=== PATIENT | female | born 1950 | race Caucasian/White ===

== ENCOUNTER 2019-07-09 13:17 | Outpatient (CLI) | payer OTHER, SELFPAY | END 2019-07-09 13:18 | disposition home or self-care (01) | LOC: RT 13:19 | PROVIDERS: Family Provider Family Medicine; PCP Family Medicine; Visit Provider Internal Medicine Critical Care Medicine | DX: Z76.89 Persons encountering health services in other specified circumstances (principal) ==

== ENCOUNTER 2019-07-13 12:00 | Outpatient (CLI) | payer MEDICARE, SELFPAY | END 2019-07-13 12:01 | disposition home or self-care (01) | LOC: SLEEP 07-19 09:51 | PROVIDERS: Family Provider Family Medicine; PCP Family Medicine; Visit Provider Internal Medicine Critical Care Medicine | DX: J44.9 Chronic obstructive pulmonary disease, unspecified (principal) | CPT/HCPCS: 94762 ==

== ENCOUNTER 2019-08-05 09:49 | Outpatient (CLI) | payer MEDICARE, SELFPAY ==
--- NOTE | 2019-08-05 09:58 | XR_ITS ---
WS: [id number] Chest 2 views, 08/05/2019 Clinical Data: Left Side Pain Comparison: Portable chest, 03/15/2019. Findings: No nodules, masses or effusions are seen. The heart is normal. The pulmonary vascularity is not increased. There is minimal patchy opacity in the lingula seen best on the lateral film. This co uld represent mild pneumonia. There is also mild patchy opacity in the right upper lobe, again minima l pneumonia could be present. The diaphragms are flattened. The aortic arch and descending aorta show minimal tortuosity and calcification. XR/XR chest 2V* [id number] Impression: 1. Mild patchy right upper lobe opacity along with opacity in the lingula and t hese entities could represent mild pneumonia. 2. Hyperinflation and atherosclerosis.
== END 2019-08-05 09:50 | disposition home or self-care (01) ==
LOC: RAD 09:55
PROVIDERS: Family Provider Family Medicine; PCP Family Medicine; Visit Provider Internal Medicine Critical Care Medicine
DX: J44.9 Chronic obstructive pulmonary disease, unspecified (principal); I70.0 Atherosclerosis of aorta
CPT/HCPCS: 71046

== ENCOUNTER 2019-08-08 12:19 | Inpatient (IN) | payer MEDICARE, SELFPAY ==
[2019-08-08] VITALS (10 sets, daily range): BP systolic 116–128; BP diastolic 69–84; PULSE 78–95; RESP 18–24; TEMP 36.4–36.9; O2SAT 82–98; BMI 17.2
--- NOTE | 2019-08-08 12:29 | ED_ITS ---
Entered by Mónica Carballo, acting as scribe for Susie Lerner DO HPI - SOB/Dyspnea General: Chief Complaint: Shortness of Breath/Dyspnea Stated Complaint: low o2 Time Seen by Provider: 08/08/19 12:24 Source: patient Mode of arrival: ambulatory Limitations: no limitations History of Present Illness: HPI Narrative: 69 yo f came to the er pov for low O2. Onset was today. Pt states that she thinks that her grandson had the flu and she took care of him. Pt sais that she felt a head cold coming and some upper right and left abd pain. Pt also said that she has been coughing up some green and yellow phlegm. sent pt for a chest xray and he called back to tell her that she has pneumonia. Pt said that she uses o2 at home and that the sob gets worse with exertion. Pt also has had a fever on and off. MD elicited complaint: shortness of breath Pertinent past history: COPD Onset (ago): day(s) (this morning) Timing: intermittent Severity: mild Exacerbating factors: lying flat, exertion, movement and coughing Relieving factors: oxygen and rest Known history of: COPD Associated symptoms: Reports cough and fever(s); Deny abdominal pain, chest pain, nausea or vomiting Treatment prior to arrival: none Related Data: Home oxygen amount: 2 liters Review of Systems General: Reports: other (negative unless marked) Const: Reports: fever ENMT: Denies: throat pain Card: Denies: chest pain or swelling of feet/ankles Resp: Reports: productive cough (green and yellow phlegm) GI: Denies: abdominal pain, nausea, vomiting, diarrhea, constipation or blood in stool : Denies: difficulty urinating Musc: Denies: back pain or extremity swelling Skin/Breast: Denies: rash Neuro: Denies: headache, numbness in extremities or weakness in extremities PFSH ED PFSH: Medical History COPD (chronic obstructive pulmonary disease) Degenerative arthritis of hip Hip pain, bilateral Joint pain Lumbar spine pain Osteoarthritis Rhinitis TMJ (dislocation of temporomandibular joint) Surgical History History of appendectomy History of hysterectomy History of mandibular surgery History of tonsillectomy and adenoidectomy Family History Mother Myocardial infarction Hypertension Social History Smoking and tobacco status: former smoker Quit status (tobacco): has quit using tobacco Year quit tobacco: 2011 - 2PPD x 40 Years Alcohol intake: never Current occupational status: employed History of recent travel: No Current gender identity: Female Physical Exam Const: COMMON NORMALS: oriented x3 GENERAL APPEARANCE: cooperative Neck/C-Spine: COMMON NORMALS: full ROM Chest: COMMONS NORMALS: inspection of chest normal Resp: EFFORT & INSPECTION: Yes respiratory distress AUSCULTATION: rales on the right throughout, on the left throughout and bilateral Cardio: COMMON NORMALS: regular rate and regular rhythm RATE: regular rate RHYTHM: regular rhythm GI: COMMON NORMALS: soft to palpation INSPECTION: Yes normal to inspection AUSCULTATION: Yes normoactive bowel sounds PALPATION: Yes soft : COMMON NORMALS: Yes no CVA tenderness BLADDER/KIDNEY EXAM: Yes no CVA tenderness Back/Pelvis: COMMON NORMALS: no CVA tenderness Extremity: COMMON NORMALS: normal to inspection Neuro: COMMON NORMALS: oriented x3 Skin: COMMON NORMALS: no rashes or lesions noted GENERAL SKIN EXAM: no rashes or lesions noted Course Vital Signs: Vital signs: Vital Signs Temperature 98.3 F 08/11/19 16:44 Pulse Rate 94 08/11/19 16:44 Respiratory Rate 20 H 08/11/19 16:44 Blood Pressure 134/89 08/11/19 16:44 Pulse Oximetry 94 08/11/19 16:44 MDM - SOB/Dyspnea MDM Narrative: Medical decision making narrative: pt has left lower lobe pneumonia that has been partially treated, she has been on avelox and another abx and is still in resp distress, I will admit her for iv abx frequent nebs, iv steroids. Dr Woodruff states he will admit Lab Data: Attestation: I reviewed the patient's lab results. Labs: Lab Results 08/08/19 08/08/19 08/08/19 Range/Units 12:53 12:53 12:53 WBC 9.4 (4.0-10.0) 10^3/ uL RBC 4.37 (4.1-5.3) 10^6/u L Hgb 13.2 (11.5-15.3) g/dL Hct 41.5 (37.0-47.0) % MCV 95.0 (81-99) fL MCH 30.2 (28.0-34.0) pg MCHC 31.8 (30.0-36.0) g/dL RDW 13.4 (12.1-15.1) % Plt Count 286 (130-400) 10^3/c mm MPV 9.6 (7.4-10.4) fL Neut % (Auto) 79.5 % Lymph % (Auto) 11.2 % Canyon % (Auto) 6.1 % Eos % (Auto) 1.8 % Baso % (Auto) 0.5 % Neut # (Auto) 7.5 (1.8-7.7) 10^3/u L Lymph # (Auto) 1.1 (0.8-4.8) 10^3/u L Canyon # (Auto) 0.6 (0.2-0.9) 10^3/u L Eos # (Auto) 0.2 (0.0-0.8) 10^3/u L Baso # (Auto) 0.1 (0.0-0.1) 10^3/u L Nucleated RBC % (a uto) 0 % Nucleated RBCs # 0.0 /100WBC Specimen Type Sample Site ABG pH (7.35-7.45) ABG pCO2 (35-45) mmHg ABG pO2 (80.0-100.0) mmH g ABG HCO3 (22-26) mmol/L ABG O2 Saturation ABG Base Excess (-2.0-2.0) mmol/ L Jose Test A-a O2 Gradient (5-10) mmHg Hematocrit (37-47) % Hgb O2 Saturation (95-100) % Carboxyhemoglobin (0.4-20.1) %THgb Methemoglobin (0.4-1.5) % Total Hemoglobin (12-16) g/dL Ionized Calcium (1.1-1.4) mmol/L O2 Delivery Device O2 Liters/Min % FiO2 % Hypnotherapist ID Sodium 143 (136-145) mmol/L Potassium 3.6 (3.5-5.1) mmol/L Chloride 104 (98-107) mmol/L Carbon Dioxide 28 (22-29) mmol/L Anion Gap 14.6 (5-19) BUN 15 (8-23) mg/dL Creatinine 0.6 (0.5-0.9) mg/dL GFR Calculation 99.7 (90-130) mL/min Glucose 116 H (65-115) mg/dL Calculated Osmolal ity 293 (285-295) mOsm/k g Calcium 9.4 (8.5-10.5) mg/dL Total Bilirubin 0.3 (0.15-1.2) mg/dL AST 14 (0-32) U/L ALT 12 (0-33) U/L Alkaline Phosphata se 137 H (35-105) IU/L NT-Pro-B Natriuret Pep 691 H (0-125) pg/mL Total Protein 7.6 (6.6-8.7) g/dL Albumin 3.5 (3.5-5.2) g/dL Globulin 4.1 (1.3-4.6) g/dL Procalcitonin 0.25 (0-0.5) ng/mL TSH 2.28 (0.27-4.20) uIU/ mL Influenza Type A A g (Negative) POC Influenza B Ag (Negative) 08/08/19 08/08/19 Range/Units 13:05 13:07 WBC (4.0-10.0) 10^3/ uL RBC (4.1-5.3) 10^6/u L Hgb (11.5-15.3) g/dL Hct (37.0-47.0) % MCV (81-99) fL MCH (28.0-34.0) pg MCHC (30.0-36.0) g/dL RDW (12.1-15.1) % Plt Count (130-400) 10^3/c mm MPV (7.4-10.4) fL Neut % (Auto) % Lymph % (Auto) % Canyon % (Auto) % Eos % (Auto) % Baso % (Auto) % Neut # (Auto) (1.8-7.7) 10^3/u L Lymph # (Auto) (0.8-4.8) 10^3/u L Canyon # (Auto) (0.2-0.9) 10^3/u L Eos # (Auto) (0.0-0.8) 10^3/u L Baso # (Auto) (0.0-0.1) 10^3/u L Nucleated RBC % (a uto) % Nucleated RBCs # /100WBC Specimen Type Arterial Sample Site Brachial, right ABG pH 7.35 (7.35-7.45) ABG pCO2 43.9 (35-45) mmHg ABG pO2 74.0 L (80.0-100.0) mmH g ABG HCO3 23.9 (22-26) mmol/L ABG O2 Saturation 96.1 ABG Base Excess -1.8 (-2.0-2.0) mmol/ L Jose Test N/a A-a O2 Gradient 72.9 H (5-10) mmHg Hematocrit 36.0 L (37-47) % Hgb O2 Saturation 92.2 L (95-100) % Carboxyhemoglobin 3.1 (0.4-20.1) %THgb Methemoglobin 0.9 (0.4-1.5) % Total Hemoglobin 11.8 L (12-16) g/dL Ionized Calcium 1.2 (1.1-1.4) mmol/L O2 Delivery Device Nc O2 Liters/Min 2.0 % FiO2 28.0 % Hypnotherapist ID gd Sodium 142.0 (136-145) mmol/L Potassium 3.3 L (3.5-5.1) mmol/L Chloride (98-107) mmol/L Carbon Dioxide (22-29) mmol/L Anion Gap (5-19) BUN (8-23) mg/dL Creatinine (0.5-0.9) mg/dL GFR Calculation (90-130) mL/min Glucose 115.0 (65-115) mg/dL Calculated Osmolal ity (285-295) mOsm/k g Calcium (8.5-10.5) mg/dL Total Bilirubin (0.15-1.2) mg/dL AST (0-32) U/L ALT (0-33) U/L Alkaline Phosphata se (35-105) IU/L NT-Pro-B Natriuret Pep (0-125) pg/mL Total Protein (6.6-8.7) g/dL Albumin (3.5-5.2) g/dL Globulin (1.3-4.6) g/dL Procalcitonin (0-0.5) ng/mL TSH (0.27-4.20) uIU/ mL Influenza Type A A g Negative (Negative) POC Influenza B Ag Negative (Negative) Imaging Data^: CXR: Radiologist's impression: [place] [address] XRay Report Signed Patient: Agnieszka Carolina #: [id number] : 1950cct#:[id number] Age/Sex: 69 / FADM Date: 08/08/19 Loc: [facility]/Bed: Attending Dr: Ordering Provider/Ordering MD: Susie Lerner DO Date of Service: 08/08/19 Procedure(s): XR chest 1V portable [id number] Accession Number(s): [id number] Report Number: [id number] PROCEDURE INFORMATION: Exam: XR Chest, 1 View Exam date and time: 08/08/2019 12:42 PM Age: 69 years old Clinical indication: Shortness of breath; Additional info: Pneumonia TECHNIQUE: Imaging protocol: XR of the chest Views: 1 view. COMPARISON: CR XR chest 2V* [id number] 08/05/2019 10:01 AM FINDINGS: Lungs: Left lower lobe interstitial congestion is seen. No consolidation. Pleural space: Unremarkable. No pleural effusion. No pneumothorax. Heart/Mediastinum: Unremarkable. No cardiomegaly. Bones/joints: Unremarkable. XR/XR chest 1V portable [id number] IMPRESSION: Left lower lobe interstitial congestion Otherwise No acute findings. Dictated By:Darrion Stanley Signed By:Nuha Stanley Date/Time:08/08/19 1302 DD/ 1301 CT Chest: Radiologist's impression: [address] [address] [address] Scan Report Signed Patient: Agnieszka Carolina #: [id number] : 1950cct#:[id number] Age/Sex: 69 / FADM Date: 08/08/19 Loc: [facility]/Bed: 253-[address]: Emerson Woodruff MD Ordering Provider/Ordering MD: Susie Lerner DO Date of Service: 08/08/19 Procedure(s): CT chest wo con [id number] Accession Number(s): [id number] Report Number: [id number] PROCEDURE INFORMATION: Exam: CT Chest Without Contrast Exam date and time: 08/08/2019 1:10 PM Age: 69 years old Clinical indication: Abnormal findings; Abnormal radiologic exam of lung or chest; Additional info: Abnl cxr TECHNIQUE: Imaging protocol: Computed tomography of the chest without contrast. Total DLP: 321.13 mGy-cm Radiation optimization: All CT scans at this facility use at least one of these dose optimization techniques: automated exposure control; mA and/or kV adjustment per patient size (includes targeted exams where dose is matched to clinical indication); or iterative reconstruction. COMPARISON: CR (CHEST, ) 08/08/2019 12:45 PM FINDINGS: Lungs: There is diffuse emphysematous change. There are scattered ground-glass and tree-in-bud opacities bilaterally, most pronounced within the right upper lobe, left lower lobe and lingula. There is streaky consolidation of the lingula with a few small air bronchograms. There is an ovoid 1.8 x 0.6 cm opacity along the posterior right lower lobe with convex margins and central hypo attenuation (image 33, series 3). Pleural space: No pneumothorax. No pleural effusion. Heart: Coronary atherosclerotic calcifications are noted. The heart is not enlarged. There is no significant pericardial effusion. Pulmonary arteries: The main pulmonary artery measures up to 3.1 cm on this nongated, noncontrast enhanced study. Aorta: Scattered aortic atherosclerotic calcifications are noted. Lymph nodes: Multiple mildly prominent mediastinal and perihilar lymph nodes are noted and may be reactive. Bones/joints: There is diffuse demineralization with multilevel degenerative changes of the spine. There are no acute osseous findings. Soft tissues: Unremarkable. CT/CT chest wo con [id number] IMPRESSION: 1. Emphysema with scattered ground-glass and tree-in-bud opacities bilaterally. Constellation of findings most commonly reflect nonspecific inflammatory or infectious change. There is streaky consolidation within the lingula, which may reflect an early consolidative process. Follow-up evaluation in 4-6 weeks is suggested to assess for resolution. 2. Ovoid opacity along the posterior right lower lobe as detailed, which may reflect consolidation, atelectasis or infarct. Attention on follow-up suggested. 3. Multiple mildly prominent mediastinal and perihilar lymph nodes, which are likely reactive. Attention on follow-up suggested. 4. Coronary atherosclerotic disease and findings which can be associated with pulmonary arterial hypertension. Radiation Dose CTDIVOL = (mGy): DLP = 321.13 (mGy-cm) Dictated By:Adalberto Garcia MD Signed By:Adalberto Garcia MDSigned Date/Time:08/08/191412 DD/ 141 Discharge Plan Discharge Patient Disposition: Admitted As Inpatient Admit Provider: Emerson Woodruff Clinical Impression: Failure of outpatient treatment Community acquired pneumonia Qualifiers: Laterality: left Lung location: lower lobe of lung Qualified Code(s): J18.9 - Pneumonia, unspecified organism Respiratory failure with hypoxia Qualifiers: Chronicity: acute on chronic Qualified Code(s): J96.21 - Acute and chronic respiratory failure with hypoxia Condition: Stable Discharge Orders: Discharge Order (Routine); Ordered 08/11/19 Ordered By: Emerson Woodruff Referrals: Mague Carrero MD [Primary Care Provider] - 08/19/19 3:30 pm (APPOINTMENT WITH DAPHNE MYRICK ) Discharge Diet: Regular Discharge Activity: Resume usual activity Patient Instructions: Ibuprofen (By mouth), Amoxicillin/Clavulanate Potassium (By mouth), Fluticasone (Into the nose) Discharge Date/Time: 08/08/19 14:36 Coding Level of Care Code ED Senior Manufacturing Technician for Chg Fwd Exam Comprehensive The documentation recorded by the Haris george Stephanie Lyn, accurately reflects the service I personally performed and the decisions made by Eduarda woods Sonia M, Aug 08, 2019 12:19
--- NOTE | 2019-08-08 12:40 | XRR_ITS ---
PROCEDURE INFORMATION: Exam: XR Chest, 1 View Exam date and time: 08/08/2019 12:42 PM Age: 69 years old Clinical indication: Shortness of breath; Additional info: Pneumonia TECHNIQUE: Imaging protocol: XR of the chest Views: 1 view. COMPARISON: CR XR chest 2V* [id number] 08/05/2019 10:01 AM FINDINGS: Lungs: Left lower lobe interstitial congestion is seen. No consolidation. Pleural space: Unremarkable. No pleural effusion. No pneumothorax. Heart/Mediastinum: Unremarkable. No cardiomegaly. Bones/joints: Unremarkable. XR/XR chest 1V portable [id number] IMPRESSION: Left lower lobe interstitial congestion Otherwise No acute findings.
[2019-08-08] MEDS: sodium chloride 0.9% 500 ML 999 ML IV (12:55)
[2019-08-08 13:00] LABS: Basophils # 0.1 10^3/uL (0.0-0.1); Basophils % 0.5 %; Eosinophils # 0.2 10^3/uL (0.0-0.8); Eosinophils % 1.8 %; Hematocrit 41.5 % (37.0-47.0); Hemoglobin 13.2 g/dL (11.5-15.3); Lymphocytes # 1.1 10^3/uL (0.8-4.8); Lymphocytes % 11.2 %; Mean Corpuscular HGB Conc 31.8 g/dL (30.0-36.0); Mean Corpuscular Hemoglobin 30.2 pg (28.0-34.0); Mean Platelet Volume 9.6 fL (7.4-10.4); Monocytes # 0.6 10^3/uL (0.2-0.9); Monocytes % 6.1 %; Neutrophils # 7.5 10^3/uL (1.8-7.7); Neutrophils % 79.5 %; Nucleated Red Blood Cells % 0 %; Platelet Count 286 10^3/cmm (130-400); Red Blood Count 4.37 10^6/uL (4.1-5.3); Red Cell Distribution Width 13.4 % (12.1-15.1); White Blood Count 9.4 10^3/uL (4.0-10.0)
--- NOTE | 2019-08-08 13:09 | CTR_ITS ---
PROCEDURE INFORMATION: Exam: CT Chest Without Contrast Exam date and time: 08/08/2019 1:10 PM Age: 69 years old Clinical indication: Abnormal findings; Abnormal radiologic exam of lung or chest; Additional info: Abnl cxr TECHNIQUE: Imaging protocol: Computed tomography of the chest without contrast. Total DLP: 321.13 mGy-cm Radiation optimization: All CT scans at this facility use at least one of these dose optimization techniques: automated exposure control; mA and/or kV adjustment per patient size (includes targeted exams where dose is matched to clinical indication); or iterative reconstruction. COMPARISON: CR (CHEST, ) 08/08/2019 12:45 PM FINDINGS: Lungs: There is diffuse emphysematous change. There are scattered ground-glass and tree-in-bud opacities bilaterally, most pronounced within the right upper lobe, left lower lobe and lingula. There is streaky consolidation of the lingula with a few small air bronchograms. There is an ovoid 1.8 x 0.6 cm opacity along the posterior right lower lobe with convex margins and central hypo attenuation (image 33, series 3). Pleural space: No pneumothorax. No pleural effusion. Heart: Coronary atherosclerotic calcifications are noted. The heart is not enlarged. There is no significant pericardial effusion. Pulmonary arteries: The main pulmonary artery measures up to 3.1 cm on this nongated, noncontrast enhanced study. Aorta: Scattered aortic atherosclerotic calcifications are noted. Lymph nodes: Multiple mildly prominent mediastinal and perihilar lymph nodes are noted and may be reactive. Bones/joints: There is diffuse demineralization with multilevel degenerative changes of the spine. There are no acute osseous findings. Soft tissues: Unremarkable. CT/CT chest wo con [id number] IMPRESSION: 1. Emphysema with scattered ground-glass and tree-in-bud opacities bilaterally. Constellation of findings most commonly reflect nonspecific inflammatory or infectious change. There is streaky consolidation within the lingula, which may reflect an early consolidative process. Follow-up evaluation in 4-6 weeks is suggested to assess for resolution. 2. Ovoid opacity along the posterior right lower lobe as detailed, which may reflect consolidation, atelectasis or infarct. Attention on follow-up suggested. 3. Multiple mildly prominent mediastinal and perihilar lymph nodes, which are likely reactive. Attention on follow-up suggested. 4. Coronary atherosclerotic disease and findings which can be associated with pulmonary arterial hypertension. Radiation Dose CTDIVOL = (mGy): DLP = 321.13 (mGy-cm)
[2019-08-08] MEDS: ipratropium-albuterol 3 mL Neb INHALATION ×3 (13:15→20:59)
[2019-08-08 13:19] LABS: ABG PCO2 43.9 mmHg (35-45); ABG PH Result 7.35 (7.35-7.45); Alveolar-Arterial Oxygen Gradi 72.9 mmHg (5-10); Base Excess ABG -1.8 mmol/L (-2.0-2.0); Blood Gas Sample Site Brachial, right; Blood Gas Sample Type Arterial; Carboxyhemoglobin 3.1 %THgb (0.4-20.1); HCO3 ABG 23.9 mmol/L (22-26); HGB O2 Sat 92.2 % (95-100); Ionized Calcium Level - ABG 1.2 mmol/L (1.1-1.4); Methemoglobin 0.9 % (0.4-1.5); Oxygen Device NC; Oxygen Saturation ABG 96.1; Potassium Level - ABG 3.3 mmol/L (3.5-5.0); Total Hemoglobin 11.8 g/dL (12-16)
[2019-08-08 13:20] LABS: Alanine Aminotransferase 12 U/L (0-33); Albumin Level 3.5 g/dL (3.5-5.2); Alkaline Phosphatase 137 IU/L (35-105); Anion Gap 14.6 (5-19); Aspartate Amino Transferase 14 U/L (0-32); Blood Urea Nitrogen 15 mg/dL (8-23); Calcium 9.4 mg/dL (8.5-10.5); Carbon Dioxide 28 mmol/L (22-29); Chloride 104 mmol/L (98-107); Globulin 4.1 g/dL (1.3-4.6); Glomerular Filtration Rate 99.7 mL/min (90-130); Glucose 116 mg/dL (65-115); Osmolality Calculated 293 mOsm/kg (285-295); Potassium 3.6 mmol/L (3.5-5.1); Sodium 143 mmol/L (136-145); Total Bilirubin 0.3 mg/dL (0.15-1.2); Total Protein 7.6 g/dL (6.6-8.7)
[2019-08-08 13:33] LABS: Influenza A by IFA Negative (Negative); Influenza B by IFA Negative (Negative)
[2019-08-08] MEDS: piperacillin-tazobactam 3.375 GM in sodium chloride 0.9% (plus) 50 ML IV ×2 (13:47→21:20)
--- NOTE | 2019-08-08 15:56 | PM.HP ---
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 She states that last she started developing shortness of breath getting exacerbated on exertion and has been getting worse needing for her to use at least 2 L of oxygen at home along with cough and expectoration. She states expectoration is usually yellowish in color not foul-smelling or bloodstained. She also complained of having a fever as high as 100.6 yesterday evening. On when the symptoms started she contacted her agriculture research director Dr. Brady's office who ordered chest x-ray which showed a pneumonia for which she was started on amoxicillin with advised to change to Avelox if her symptoms did not improve. Patient was due to start her Avelox from today but as her symptoms were getting worse she decided to come to the ER. In ER patient was found to have her saturations in low 80s which improved after nebulization and at present he saturating 95% on 2 L nasal cannula. Patient denies of having any nausea, vomiting, headache, diarrhea, dysuria, confusion, palpitations, swelling in the legs, orthopnea or PND. She denies of having any sick contacts other than her grandson and few people coughing at the theater she went 6 days ago at [place]. She denies of having any recent travels or being in touch with somebody who has had recent travels. Review of Systems Const: Reports: fever and malaise; Denies: chills, body aches, change in appetite, night sweats, diaphoresis, change in sleep pattern, daytime sleepiness or snoring Eyes: Denies: change in vision, blurry vision, photophobia, eye discomfort or eye discharge ENMT: Reports: throat pain; Denies: enlarged tonsils, hoarseness, mouth pain, oral sores/lesions, dry mouth, tinnitus, nasal congestion or post nasal drip Card: Reports: chest pain; Denies: palpitations, irregular heart rhythm, edema, swelling of feet/ankles, lightheadedness, syncope, pre-syncope, shortness of breath on exertion, shortness of breath when lying down, leg pain with exertion or bluish discoloration of hands/feet Resp: Reports: shortness of breath, productive cough and pain on inspiration; Denies: non-productive cough, wheezing, stridor, change in phlegm color, coughing up blood or chest congestion GI: Denies: abdominal pain, nausea, vomiting, vomiting blood, coffee grounds in vomit, difficulty swallowing, heartburn/indigestion, diarrhea, constipation, bloating, cramping, change in bowel habits, painful bowel movements, blood in stool or black tarry stool : Denies: flank pain, painful urination, urinary frequency, urinary urgency, urinary hesitancy, nighttime urination or blood in urine Musc: Denies: neck pain, back pain, extremity pain, joint pain, joint swelling, redness, joint stiffness or limited range of motion Neuro: Reports: headache; Denies: numbness in extremities, weakness in extremities, changes in sensation, lack of coordination, difficulty walking, frequent falls, dizziness, vertigo, confusion, slurred speech, difficulty communicating thoughts or seizure-like activity Psych: Denies: anxiety, depression, mood swings, panic attacks, hopelessness or irritability Endo: Denies: excessive urination, excessive thirst, tired all the time, cold intolerance, excessive sweating, flushing or heat intolerance Jose Martin/Lymph: Denies: easy bruising or easy bleeding All/Imm: Denies: tongue swelling, facial swelling or acute wheezing Medications/Allergies Home Medications Medication Instructions Recorded Confirmed Last Taken Type acetaminophen [Tylenol] 325 mg PO PRN 08/08/19 08/08/19 Unknown History upakmmsqorl-yrsvenodx-lztomkny 1 inh INHALATION DAILY 08/08/19 08/08/19 Unknown History [Trelegy Ellipta] ibuprofen 600 mg PO PRN 08/08/19 08/08/19 08/08/19 History Allergies Allergy/AdvReac Type Severity Reaction Status Date / Time pentazocine [From Stevie] Allergy Severe ALGY-Anaphy Verified 06/15/19 10:11 laxis bee venom protein (honey bee) Allergy ALGY-Anaphy Verified 08/08/19 12:32 laxis PFSH Acute PFSH: Medical History COPD (chronic obstructive pulmonary disease) Degenerative arthritis of hip Hip pain, bilateral Joint pain Lumbar spine pain Osteoarthritis Rhinitis TMJ (dislocation of temporomandibular joint) Surgical History History of appendectomy History of hysterectomy History of mandibular surgery History of tonsillectomy and adenoidectomy Family History Mother Myocardial infarction Hypertension Social History Smoking and tobacco status: former smoker Quit status (tobacco): has quit using tobacco Year quit tobacco: 2011 - 2PPD x 40 Years Alcohol intake: never Current occupational status: employed History of recent travel: No Current gender identity: Female Vitals/I&O/Wt Last Vital Signs Temp 97.8 F 08/08/19 14:23 Pulse 83 08/08/19 14:23 Resp 20 H 08/08/19 15:34 BP 117/69 08/08/19 14:23 Pulse Ox 95 08/08/19 15:34 08/08/19 08/08/19 08/08/19 06:59 14:59 22:59 Intake Total 500 / 500 Balance 500 / 500 Weight last 48 hrs Weight 45.359 kg Physical Exam Narrative: EXAM NARRATIVE: General: No acute distress, AO x3 HEENT: PERRLA, pupils bilaterally equal and reactive Chest: Normal vesicular breath sounds all over the lung galvan except right lower zone left middle middle zone which has coarse crackles, equal good air entry bilaterally CVS: S1-S2 regular, no murmurs, no tachycardia, no gallops, no rubs Abdomen: Soft, nontender, no organomegaly, bowel sounds present Neuro: No focal deficits, no facial deformity, AO x3, power 5/5 in all limbs Data : 08/08/19 12:53 08/08/19 12:53 Micro: Microbiology 08/08/19 13:23 Blood Culture - Preliminary Blood SPECIMEN COLLECTED 08/08/19 12:53 Blood Culture - Preliminary Blood SPECIMEN COLLECTED A&P Assessment and plan (1) Respiratory failure with hypoxia: Status: Acute Qualifiers: Chronicity: acute on chronic Qualified Code(s): J96.21 - Acute and chronic respiratory failure with hypoxia Code(s): J96.91 - Respiratory failure, unspecified with hypoxia (2) Community acquired pneumonia: Status: Acute Qualifiers: Laterality: left Lung location: lower lobe of lung Qualified Code(s): J18.9 - Pneumonia, unspecified organism Code(s): J18.9 - Pneumonia, unspecified organism (3) Failure of outpatient treatment: Status: Acute Code(s): Z78.9 - Other specified health status (4) COPD (chronic obstructive pulmonary disease): Status: Acute Code(s): J44.9 - Chronic obstructive pulmonary disease, unspecified Additional A&P Information Acute hypoxic respiratory failure secondary to pneumonia: 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 Check CT scan without contrast. Flu negative. ABG done on admission shows a saturation of 74% on 2 L nasal cannula with a normal CO2 levels. Check procalcitonin, sputum culture, blood culture, urinalysis, urine culture, lactate. We will start patient on vancomycin and Zosyn empirically for now. Will de-escalate antibiotics as per the culture results. Budesonide twice daily and DuoNeb's every 6 hours. Flonase twice daily Oxygen supplementation keeping saturation over 90%. Tessalon Perles every 6 hours as needed. Ketorolac as needed for chest pain. We will hold off on steroids for now as patient does not have much wheezing on examination. Given her history of being in sick contact with her grandson, fever, acute respiratory failure with hypoxia needing supplemental oxygenation, recent healthcare provider will discuss the case with [facility] regarding possible COVID screening. If they approve will test for the same. Droplet precautions. Check TSH. Code Status: DNR/DNI Regular diet. Lovenox 40 mg subcu daily. Attestations Medical Necessity Statement*: More than 2 midnights for acute hypoxic respiratory failure because of pneumonia Time Spent in Patient Care: Greater than 35 minutes Coding Level of Care Code Acute Mine Development Engineer for mignon Fwtorres Diagnoses Respiratory failure with hypoxia J96.21 Chronicity: acute on chronic Community acquired pneumonia J18.9 Laterality: left Lung location: lower lobe of lung Failure of outpatient treatment Z78.9 COPD (chronic obstructive pulmonary disease) J44.9
[2019-08-08 17:59] LABS: NT Pro B Type Natriuretic Pept 691 pg/mL (0-125); Procalcitonin 0.25 ng/mL (0-0.5); Thyroid Stimulating Hormone 2.28 uIU/mL (0.27-4.20)
[2019-08-08] MEDS: ketorolac 10 mg Tablet PO (18:32)
[2019-08-08] MEDS: sodium chloride 0.9% 1,000 ML 50 ML IV (18:32)
[2019-08-08] MEDS: vancomycin 750 MG in sodium chloride 0.9% 250 ML 250 MG IV (18:33)
[2019-08-08] MEDS: budesonide 0.5 mg/2 mL Neb INHALATION (20:59)
[2019-08-08] MEDS: enoxaparin 40 mg/0.4 mL Syringe SUBCUT (21:23)
[2019-08-09] VITALS (13 sets, daily range): BP systolic 129–158; BP diastolic 71–94; PULSE 80–90; RESP 18–21; TEMP 36.6–36.9; O2SAT 91–98
[2019-08-09] MEDS: ipratropium-albuterol 3 mL Neb INHALATION ×4 (02:58→22:12)
[2019-08-09] MEDS: vancomycin 750 MG in sodium chloride 0.9% 250 ML 250 MG IV (04:14)
[2019-08-09] MEDS: piperacillin-tazobactam 3.375 GM in sodium chloride 0.9% (plus) 50 ML IV ×3 (04:14→22:16)
[2019-08-09] MEDS: ketorolac 10 mg Tablet PO ×3 (04:27→22:16)
[2019-08-09 06:30] LABS: Basophils % 0.1 %; Hemoglobin 10.4 g/dL (11.5-15.3); Lymphocytes # 0.8 10^3/uL (0.8-4.8); Lymphocytes % 8.9 %; Mean Corpuscular HGB Conc 31.5 g/dL (30.0-36.0); Mean Corpuscular Hemoglobin 29.4 pg (28.0-34.0); Mean Corpuscular Volume 93.2 fL (81-99); Mean Platelet Volume 9.9 fL (7.4-10.4); Monocytes # 0.6 10^3/uL (0.2-0.9); Monocytes % 6.7 %; Neutrophils % 82.8 %; Nucleated Red Blood Cells % 0 %; Platelet Count 274 10^3/cmm (130-400); Red Blood Count 3.54 10^6/uL (4.1-5.3); Red Cell Distribution Width 13.2 % (12.1-15.1); White Blood Count 8.5 10^3/uL (4.0-10.0)
[2019-08-09 06:49] LABS: Alanine Aminotransferase 11 U/L (0-33); Albumin Level 3.1 g/dL (3.5-5.2); Alkaline Phosphatase 119 IU/L (35-105); Anion Gap 13.6 (5-19); Aspartate Amino Transferase 13 U/L (0-32); Blood Urea Nitrogen 14 mg/dL (8-23); Calcium 8.5 mg/dL (8.5-10.5); Carbon Dioxide 27 mmol/L (22-29); Chloride 105 mmol/L (98-107); Globulin 3.3 g/dL (1.3-4.6); Glomerular Filtration Rate 123.1 mL/min (90-130); Glucose 137 mg/dL (65-115); Osmolality Calculated 292 mOsm/kg (285-295); Potassium 3.6 mmol/L (3.5-5.1); Sodium 142 mmol/L (136-145); Total Bilirubin 0.2 mg/dL (0.15-1.2); Total Protein 6.4 g/dL (6.6-8.7)
[2019-08-09] MEDS: budesonide 0.5 mg/2 mL Neb INHALATION ×2 (08:49→22:12)
[2019-08-09] MEDS: azithromycin 500 MG in sodium chloride 0.9% 250 ML 250 MG IV (10:40)
[2019-08-09 11:33] LABS: Add Urine Microscopic? NO
[2019-08-09 11:42] LABS: Bilirubin Urine Neg (NEGATIVE); Blood Urine Neg (Negative); Glucose Urine UA Norm (Normal); Ketones Urine Negative (Negative); Leukocyte Esterase Urine Negative (Negative); Nitrate Urine Negative (Negative); Protein Urine Neg (Negative); Urine Appearance Clear (CLEAR); Urine Color Yellow (Yellow); Urobilinogen Urine Norm (Negative); pH Urine 6 (5-7)
[2019-08-09] MEDS: ALPRAZolam 0.25 mg Tablet PO ×2 (12:15→22:15)
[2019-08-09] MEDS: benzonatate 100 mg Capsule 200 MG PO ×3 (12:15→22:15)
--- NOTE | 2019-08-09 14:13 | PM.PN ---
Subjective Subjective: Interval history: No acute events overnight. Patient states she is feeling a lot better though is complaining of being anxious. She states ketorolac is helping her with her pain on coughing. Cough remains the same with expectoration has improved. Patient has remained afebrile since admission. Vitals/I&O/Wt Last Vital Signs Temp 98.1 F 08/09/19 11:40 Pulse 84 08/09/19 11:40 Resp 18 08/09/19 11:40 BP 134/80 08/09/19 11:40 Pulse Ox 98 08/09/19 11:40 08/08/19 08/09/19 08/09/19 22:59 06:59 14:59 Intake Total 250 / 750 50 / 800 530 / 530 Output Total 200 / 200 300 / 500 Balance 50 / 550 -250 / 300 530 / 530 Weight last 48 hrs Weight 45.359 kg Physical Exam Narrative: EXAM NARRATIVE: General: No acute distress, AO x3 HEENT: PERRLA, pupils bilaterally equal and reactive Chest: Normal vesicular breath sounds all over the lung galvan except right lower zone left middle middle zone which has coarse crackles, equal good air entry bilaterally CVS: S1-S2 regular, no murmurs, no tachycardia, no gallops, no rubs Abdomen: Soft, nontender, no organomegaly, bowel sounds present Neuro: No focal deficits, no facial deformity, AO x3, power 5/5 in all limbs Data : 08/09/19 05:45 08/09/19 05:45 Micro: Microbiology 08/08/19 13:23 Blood Culture - Preliminary Blood NEGATIVE TO DATE 08/08/19 12:53 Blood Culture - Preliminary Blood NEGATIVE TO DATE 08/09/19 10:15 Legionella Urinary Antigen - Final Urine,Clean Catch 08/08/19 13:07 Gram Stain - Final Sputum - Expectorated Sputum Sputum Culture - Preliminary 08/08/19 19:45 MRSA Culture - Final Nose A&P Assessment and plan (1) Respiratory failure with hypoxia: Status: Acute Qualifiers: Chronicity: acute on chronic Qualified Code(s): J96.21 - Acute and chronic respiratory failure with hypoxia Code(s): J96.91 - Respiratory failure, unspecified with hypoxia (2) Community acquired pneumonia: Status: Acute Qualifiers: Laterality: left Lung location: lower lobe of lung Qualified Code(s): J18.9 - Pneumonia, unspecified organism Code(s): J18.9 - Pneumonia, unspecified organism (3) Failure of outpatient treatment: Status: Acute Code(s): Z78.9 - Other specified health status (4) COPD (chronic obstructive pulmonary disease): Status: Acute Code(s): J44.9 - Chronic obstructive pulmonary disease, unspecified Additional A&P Information Acute hypoxic respiratory failure secondary to pneumonia: 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 CT chest results appreciated. Continue vancomycin and Zosyn for now. Will de-escalate antibiotics as per the sputum and blood culture results. Testing for covid 19 was approved by [facility] yesterday. Results awaited most likely will get by tomorrow afternoon. Budesonide twice daily and DuoNeb's every 6 hours. Flonase twice daily Oxygen supplementation keeping saturation over 90%. Tessalon Perles 4 times daily scheduled Ketorolac as needed for chest pain. We will hold off on steroids for now as patient does not have much wheezing on examination. Will add Xanax 0.25 every 8 hour as needed for anxiety. Patient is eating well so we will discontinue IV fluids. Airborne and contact isolation till COVID results come back. Code Status: DNR/DNI Regular diet. Lovenox 40 mg subcu daily. Attestations Medical Necessity Statement*: Acute hypoxic respiratory failure due to pneumonia Time Spent in Patient Care: 16 - 35 minutes Coding Level of Care Code Acute Stock Sorter for mignon Lambert Diagnoses Respiratory failure with hypoxia J96.21 Chronicity: acute on chronic Community acquired pneumonia J18.9 Laterality: left Lung location: lower lobe of lung Failure of outpatient treatment Z78.9 COPD (chronic obstructive pulmonary disease) J44.9
--- NOTE | 2019-08-09 15:14 | PC.SOCIAL ---
Patient was given the Medicare BPMI beneficiary letter. Original is signed and placed in the chart.
[2019-08-09 17:40] LABS: Vancomycin Trough 7.3 ug/mL (10-15)
[2019-08-09] MEDS: vancomycin 1,000 MG in sodium chloride 0.9% 250 ML 250 MG IV (18:46)
[2019-08-09] MEDS: fluticasone nasal spray 16gm Btl 1 SPRAY NASAL (18:47)
[2019-08-09] MEDS: enoxaparin 40 mg/0.4 mL Syringe SUBCUT (22:16)
[2019-08-10] VITALS (15 sets, daily range): BP systolic 132–180; BP diastolic 74–100; PULSE 66–89; RESP 16–24; TEMP 36.4–36.9; O2SAT 91–97
[2019-08-10] MEDS: ipratropium-albuterol 3 mL Neb INHALATION ×4 (03:21→20:10)
[2019-08-10] MEDS: piperacillin-tazobactam 3.375 GM in sodium chloride 0.9% (plus) 50 ML IV ×3 (05:16→22:47)
[2019-08-10 06:07] LABS: Basophils # 0.1 10^3/uL (0.0-0.1); Basophils % 0.9 %; Eosinophils # 0.2 10^3/uL (0.0-0.8); Eosinophils % 2.2 %; Hematocrit 33.9 % (37.0-47.0); Hemoglobin 10.5 g/dL (11.5-15.3); Lymphocytes % 21.6 %; Mean Corpuscular Hemoglobin 29.9 pg (28.0-34.0); Mean Corpuscular Volume 96.6 fL (81-99); Mean Platelet Volume 9.2 fL (7.4-10.4); Monocytes # 0.7 10^3/uL (0.2-0.9); Monocytes % 7.7 %; Neutrophils # 6.1 10^3/uL (1.8-7.7); Neutrophils % 65.4 %; Nucleated Red Blood Cells % 0 %; Platelet Count 267 10^3/cmm (130-400); Red Blood Count 3.51 10^6/uL (4.1-5.3); Red Cell Distribution Width 13.4 % (12.1-15.1); White Blood Count 9.4 10^3/uL (4.0-10.0)
[2019-08-10 06:18] LABS: Alanine Aminotransferase 11 U/L (0-33); Albumin Level 2.6 g/dL (3.5-5.2); Alkaline Phosphatase 88 IU/L (35-105); Anion Gap 13.3 (5-19); Aspartate Amino Transferase 17 U/L (0-32); Blood Urea Nitrogen 9 mg/dL (8-23); Calcium 8.4 mg/dL (8.5-10.5); Carbon Dioxide 23 mmol/L (22-29); Chloride 107 mmol/L (98-107); Globulin 2.9 g/dL (1.3-4.6); Glomerular Filtration Rate 159.2 mL/min (90-130); Glucose 101 mg/dL (65-115); Osmolality Calculated 286 mOsm/kg (285-295); Potassium 3.3 mmol/L (3.5-5.1); Sodium 140 mmol/L (136-145); Total Bilirubin 0.2 mg/dL (0.15-1.2); Total Protein 5.5 g/dL (6.6-8.7)
[2019-08-10 06:45] LABS: Slide Review Slide Review Perform
[2019-08-10] MEDS: ketorolac 10 mg Tablet PO ×2 (07:31→20:21)
[2019-08-10] MEDS: budesonide 0.5 mg/2 mL Neb INHALATION ×2 (09:23→20:10)
--- NOTE | 2019-08-10 09:37 | P.PN_ITS ---
Subjective Subjective: Interval history: No acute events overnight. This morning on evaluation patient is complaining of headache. She states she still having pain in her chest on cough. Cough has remained the same to shortness of breath improved. Patient is staying and she is not bringing up any more phlegm. Patient remains on 2 L nasal cannula saturating more than 98% last 24 hours. Nurse has been advised to keep her saturations around 90-91%. Patient's headache is most likely because of XX supplemental oxygenation. Patient has remained hemodynamically stable and afebrile. Vitals/I&O/Wt Last Vital Signs Temp 98 F 08/10/19 08:00 Pulse 89 08/10/19 09:28 Resp 18 08/10/19 09:23 BP 132/78 08/10/19 08:00 Pulse Ox 97 08/10/19 09:23 08/09/19 08/10/19 08/10/19 22:59 06:59 14:59 Intake Total 830 / 1840 50 / 1890 200 / 200 Balance 830 / 1840 50 / 1890 200 / 200 Weight last 48 hrs Weight 45.359 kg Physical Exam Narrative: EXAM NARRATIVE: General: No acute distress, AO x3 HEENT: PERRLA, pupils bilaterally equal and reactive Chest: Normal vesicular breath sounds all over the lung galvan except right lower zone left middle middle zone which has coarse crackles, equal good air entry bilaterally CVS: S1-S2 regular, no murmurs, no tachycardia, no gallops, no rubs Abdomen: Soft, nontender, no organomegaly, bowel sounds present Neuro: No focal deficits, no facial deformity, AO x3, power 5/5 in all limbs Data : 08/10/19 05:44 08/10/19 05:44 Micro: Microbiology 08/08/19 13:23 Blood Culture - Preliminary Blood NEGATIVE TO DATE 08/08/19 12:53 Blood Culture - Preliminary Blood NEGATIVE TO DATE 08/09/19 10:15 Legionella Urinary Antigen - Final Urine,Clean Catch 08/08/19 13:07 Gram Stain - Final Sputum - Expectorated Sputum Sputum Culture - Preliminary 08/08/19 19:45 MRSA Culture - Final Nose A&P Assessment and plan (1) Respiratory failure with hypoxia: Status: Acute Qualifiers: Chronicity: acute on chronic Qualified Code(s): J96.21 - Acute and chronic respiratory failure with hypoxia Code(s): J96.91 - Respiratory failure, unspecified with hypoxia (2) Community acquired pneumonia: Status: Acute Qualifiers: Laterality: left Lung location: lower lobe of lung Qualified Code(s): J18.9 - Pneumonia, unspecified organism Code(s): J18.9 - Pneumonia, unspecified organism (3) Failure of outpatient treatment: Status: Acute Code(s): Z78.9 - Other specified health status (4) COPD (chronic obstructive pulmonary disease): Status: Acute Code(s): J44.9 - Chronic obstructive pulmonary disease, unspecified Additional A&P Information Acute hypoxic respiratory failure secondary to pneumonia: 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 CT chest results appreciated. Continue vancomycin and Zosyn for now. Sputum culture continues to remain negative. If they continue to remain negative we will switch onto oral antibiotics tomorrow. Testing for covid 19 was approved by [facility] yesterday. Results awaited most likely will get by tomorrow afternoon. Budesonide twice daily and DuoNeb's every 6 hours. Flonase twice daily Oxygen supplementation keeping saturation over 90%. Patient having more expectoration after Tessalon Perles. Will change Tessalon Perles to as needed 4 times daily we will add Robitussin every 8 hours scheduled. Ketorolac as needed for chest pain. We will hold off on steroids for now as patient does not have much wheezing on examination. Continue with Xanax 0.25 every 8 hours as needed. No fluids. Airborne and contact isolation till COVID results come back. Code Status: DNR/DNI Regular diet. Lovenox 40 mg subcu daily. Attestations Medical Necessity Statement*: Hypoxic respiratory failure, COVID rule out Time Spent in Patient Care: Greater than 35 minutes Coding Level of Care Code Acute Investment Banking Associate for Anjelica Lambert Diagnoses Respiratory failure with hypoxia J96.21 Chronicity: acute on chronic Community acquired pneumonia J18.9 Laterality: left Lung location: lower lobe of lung Failure of outpatient treatment Z78.9 COPD (chronic obstructive pulmonary disease) J44.9
[2019-08-10] MEDS: benzonatate 100 mg Capsule 200 MG PO (09:43)
[2019-08-10] MEDS: azithromycin 500 MG in sodium chloride 0.9% 250 ML 250 MG IV (09:43)
[2019-08-10] MEDS: morphine 4 mg/mL SDV 1 mL 1 MG IVP (10:37)
[2019-08-10] MEDS: vancomycin 1,000 MG in sodium chloride 0.9% 250 ML 250 MG IV ×2 (11:00→22:48)
--- NOTE | 2019-08-10 11:19 | PC.CHAP ---
Pastoral Care Encounter/Spiritual Assessment Type of Contact [] Declined animal shelter worker visit [] Patient/Family/Request visit [] Outpatient visit [] Follow-up visit [] Physician referral [] Code/Alert [x] Routine visit [] Staff referral [] Actively dying [] Patient sleeping [] Family support [] [] Out of room [] Palliative care [] [] Receiving care in room [] Pre-surgical visit [] Trauma [] Long length of stay [] ICU visit [] Other: Relational/Emotional Strength [x] Patient feels connected with others/family/visitors/staff [] Distress [] Loneliness/isolation [] Abandonment Spirituality of Patient [x] Person of Marley [] Attends Druze of their Marley [x Believes in Prayer [] Reads Bible or Gnosticism materials [] There are Spiritual issues to be addressed Director [employer] Interventions [x] Prayer [x] Active listening [x] Non-anxious presence [x] Spiritual/emotional support [x] Crisis/trauma care [x] Spiritual counseling [] Bereavement support [] Provided bereavement packet [] Provided Bible/devotional materials [] Provided toy/stuffed animal, coloring book to patient or family member [] Provided Communion [] Anointing/[place] [] Salvation [] Completed spiritual assessment [] Other: Impact on Illness or Injury [] Angry [] Fearful [] Anxious [] Often cries [] Exhaustion [] Unable to work [] Unable to attend latter day [] Unable to walk/stand [] Unable to read [] Unable to drive [] Unable to eat/drink [] Unable to sleep [] Unable to be with family [] Patient intubated [x] Other: n/a Summary Time spent with patient 2 minutes
[2019-08-10] MEDS: acetaminophen 325 mg Tablet PO (12:31)
[2019-08-10] MEDS: guaiFENesin 100 mg/5 mL UDC 10 mL 200 MG PO ×2 (12:33→18:03)
[2019-08-10] MEDS: ALPRAZolam 0.25 mg Tablet PO (20:20)
[2019-08-10] MEDS: enoxaparin 40 mg/0.4 mL Syringe SUBCUT (22:46)
[2019-08-11] VITALS (14 sets, daily range): BP systolic 106–150; BP diastolic 74–94; PULSE 67–94; RESP 17–20; TEMP 36.5–36.8; O2SAT 82–95
[2019-08-11] MEDS: morphine 4 mg/mL SDV 1 mL 1 MG IVP
[2019-08-11] MEDS: guaiFENesin 100 mg/5 mL UDC 10 mL 200 MG PO ×3 (00:04→13:37)
[2019-08-11] MEDS: ipratropium-albuterol 3 mL Neb INHALATION ×3 (02:21→14:23)
[2019-08-11] MEDS: piperacillin-tazobactam 3.375 GM in sodium chloride 0.9% (plus) 50 ML IV (04:56)
[2019-08-11] MEDS: ketorolac 10 mg Tablet PO (04:57)
[2019-08-11 06:17] LABS: Basophils # 0.1 10^3/uL (0.0-0.1); Basophils % 0.6 %; Eosinophils # 0.3 10^3/uL (0.0-0.8); Hematocrit 37.2 % (37.0-47.0); Hemoglobin 11.8 g/dL (11.5-15.3); Lymphocytes # 1.9 10^3/uL (0.8-4.8); Lymphocytes % 19.3 %; Mean Corpuscular HGB Conc 31.7 g/dL (30.0-36.0); Mean Corpuscular Hemoglobin 29.4 pg (28.0-34.0); Mean Corpuscular Volume 92.5 fL (81-99); Mean Platelet Volume 9.1 fL (7.4-10.4); Monocytes # 0.7 10^3/uL (0.2-0.9); Neutrophils # 6.7 10^3/uL (1.8-7.7); Neutrophils % 68.2 %; Nucleated Red Blood Cells % 0 %; Platelet Count 303 10^3/cmm (130-400); Red Blood Count 4.02 10^6/uL (4.1-5.3); Red Cell Distribution Width 12.9 % (12.1-15.1); White Blood Count 9.8 10^3/uL (4.0-10.0)
[2019-08-11 06:33] LABS: Alanine Aminotransferase 9 U/L (0-33); Albumin Level 3.2 g/dL (3.5-5.2); Alkaline Phosphatase 100 IU/L (35-105); Anion Gap 10.5 (5-19); Aspartate Amino Transferase 17 U/L (0-32); Blood Urea Nitrogen 6 mg/dL (8-23); Carbon Dioxide 35 mmol/L (22-29); Chloride 100 mmol/L (98-107); Globulin 3.7 g/dL (1.3-4.6); Glomerular Filtration Rate 159.2 mL/min (90-130); Glucose 113 mg/dL (65-115); Osmolality Calculated 291 mOsm/kg (285-295); Potassium 3.5 mmol/L (3.5-5.1); Sodium 142 mmol/L (136-145); Total Bilirubin 0.3 mg/dL (0.15-1.2); Total Protein 6.9 g/dL (6.6-8.7)
[2019-08-11 06:36] LABS: Vancomycin Trough 13.5 ug/mL (10-15)
[2019-08-11] MEDS: budesonide 0.5 mg/2 mL Neb INHALATION (09:09)
--- NOTE | 2019-08-11 10:25 | PC.SOCIAL ---
IMM Update Pg 2 of IMM given and explained to patient who verbalized understanding. Copy provided and chart updated.
--- NOTE | 2019-08-11 11:29 | P.DS_ITS ---
Discharge Providers Date of Admission: 08/08/19 13:12 Date of Discharge: August 11, 2019 Attending Provider at Admission: Emerson Woodruff MD Attending Provider at Discharge: Emerson Woodruff MD Primary Care Provider: Mague Carrero MD Diagnoses at Discharge Discharge Diagnosis (1) Respiratory failure with hypoxia: Status: Acute Qualifiers: Chronicity: acute on chronic Qualified Code(s): J96.21 - Acute and chronic respiratory failure with hypoxia (2) Community acquired pneumonia: Status: Acute Qualifiers: Laterality: left Lung location: lower lobe of lung Qualified Code(s): J18.9 - Pneumonia, unspecified organism (3) Failure of outpatient treatment: Status: Acute (4) COPD (chronic obstructive pulmonary disease): Status: Acute Reason for Visit Reason for Visit: Reason For Visit: low o2 Hospital Course Discharge Summary: Agnieszka Carolina is a 69 year old female with past medical history of COPD not on home oxygen for last 6 to 7 months 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 She states that last she started developing shortness of breath getting exacerbated on exertion and has been getting worse needing for her to use at least 2 L of oxygen at home along with cough and expectoration. She states expectoration is usually yellowish in color not foul-smelling or bloodstained. She also complained of having a fever as high as 100.6 yesterday evening. On when the symptoms started she contacted her wafer fabrication technician Dr. Brady's office who ordered chest x-ray which showed a pneumonia for which she was started on amoxicillin with advised to change to Avelox if her symptoms did not improve. Patient was due to start her Avelox from today but as her symptoms were getting worse she decided to come to the ER. In ER patient was found to have her saturations in low 80s which improved after nebulization and at present he saturating 95% on 2 L nasal cannula. Patient denies of having any nausea, vomiting, headache, diarrhea, dysuria, confusion, palpitations, swelling in the legs, orthopnea or PND. She denies of having any sick contacts other than her grandson and few people coughing at the theater she went [address] [facility]. She denies of having any recent travels or being in touch with somebody who has had recent travels. CT chest was done which showed bilateral small groundglass opacities. Because of her history of exposure to sick contact, being a healthcare provider recently and a CT studies case was discussed with [facility] and COVID testing was sent which came negative on August 09. Meanwhile patient was started on broad-spectrum antibiotics. Patient remained afebrile and was saturating more than 90% on 2 L nasal cannula throughout the admission. Urine for Legionella test was negative and patient had finished 3 days of treatment for atypical pneumonia. Patient is been discharged in hemodynamically stable condition on oral antibiotics as per the sputum culture results and is been asked to follow-up with Dr. Brady as an outpatient on July 29. Physical Exam Narrative: EXAM NARRATIVE: General: No acute distress, AO x3 HEENT: PERRLA, pupils bilaterally equal and reactive Chest: Normal vesicular breath sounds all over the lung galvan except right lower zone left middle middle zone which has coarse crackles, equal good air entry bilaterally CVS: S1-S2 regular, no murmurs, no tachycardia, no gallops, no rubs Abdomen: Soft, nontender, no organomegaly, bowel sounds present Neuro: No focal deficits, no facial deformity, AO x3, power 5/5 in all limbs Discharge Data Data Completed and Pending: Completed Studies During Hospitalization Category Date Time Status CT chest wo con 7 [id number] Urgent Cat Scan 08/08/19 13:09 Completed XR chest 1V patti ble [id number] Stat Exams 08/08/19 12:40 Completed Pending at discharge Category Date Time Status Arterial Blood Ga s W/Coox Routine Lab 08/08/19 12:40 Ordered Blood Culture Sta t Lab 08/08/19 13:23 Results Sputum Culture an d Gram Stain Stat Lab 08/08/19 13:07 Results Labs from last 24 hours 08/11/19 08/11/19 08/11/19 06:06 06:06 06:06 WBC 9.8 RBC 4.02 L Hgb 11.8 Hct 37.2 MCV 92.5 MCH 29.4 MCHC 31.7 RDW 12.9 Plt Count 303 MPV 9.1 Neut % (Auto) 68.2 Lymph % (Auto) 19.3 Bucks % (Auto) 7.0 Eos % (Auto) 3.0 Baso % (Auto) 0.6 Neut # (Auto) 6.7 Lymph # (Auto) 1.9 Bucks # (Auto) 0.7 Eos # (Auto) 0.3 Baso # (Auto) 0.1 Nucleated RBC % (a uto) 0 Nucleated RBCs # 0.0 Sodium 142 Potassium 3.5 Chloride 100 Carbon Dioxide 35 H Anion Gap 10.5 BUN 6 L Creatinine 0.4 L GFR Calculation 159.2 H Glucose 113 Calculated Osmolal ity 291 Calcium 9.0 Total Bilirubin 0.3 AST 17 ALT 9 Alkaline Phosphata se 100 Total Protein 6.9 Albumin 3.2 L Globulin 3.7 Vancomycin Trough 13.5 Misc Test Referenc e 08/08/19 19:45 WBC RBC Hgb Hct MCV MCH MCHC RDW Plt Count MPV Neut % (Auto) Lymph % (Auto) Bucks % (Auto) Eos % (Auto) Baso % (Auto) Neut # (Auto) Lymph # (Auto) Bucks # (Auto) Eos # (Auto) Baso # (Auto) Nucleated RBC % (a uto) Nucleated RBCs # Sodium Potassium Chloride Carbon Dioxide Anion Gap BUN Creatinine GFR Calculation Glucose Calculated Osmolal ity Calcium Total Bilirubin AST ALT Alkaline Phosphata se Total Protein Albumin Globulin Vancomycin Trough Misc Test Referenc e Vitals: Last Vital Signs Temp 97.9 F 08/11/19 07:32 Pulse 89 08/11/19 09:17 Resp 17 08/11/19 09:10 BP 144/94 08/11/19 07:32 Pulse Ox 93 08/11/19 09:10 Discharge Plan Discharge Patient Disposition: Home, Self-Care Condition: Stable Prescriptions: New Pulmicort Flexhaler 180 mcg/actuation aerosol powdr breath activated 1 inh INHALATION BID Qty: 1 RF: 0 levofloxacin 750 mg tablet 750 mg PO DAILY 5 Days Qty: 5 RF: 0 fluticasone propionate 50 mcg/actuation Chloride,Suspension 1 spray nasal BID Qty: 30 RF: 0 guaifenesin 100 mg/5 mL Liquid 200 mg PO Q6H PRN (Reason: cough) Qty: 50 RF: 0 amoxicillin-pot clavulanate [Augmentin] 875-125 mg tablet 1 tab PO Q12H Qty: 10 RF: 0 Continued albuterol sulfate [Ventolin HFA] 90 mcg/actuation HFA aerosol inhaler 2 puff INHALATION Q6H PRN (Reason: Shortness Of Breath) RF: 0 ipratropium-albuterol 0.5 mg-3 mg(2.5 mg base)/3 mL solution for nebulization 3 ml INHALATION Q6H PRN (Reason: unknown) RF: 0 fluticasone propion-salmeterol [Advair Diskus] 250-50 mcg/dose blister with device 1 inh INHALATION BID Qty: 60 RF: 3 Tylenol 325 mg Tablet 325 mg PO PRN RF: 0 ibuprofen 200 mg Tablet 600 mg PO PRN RF: 0 Trelegy Ellipta 100-62.5-25 mcg Blister With Device 1 inh INHALATION DAILY RF: 0 Discontinued moxifloxacin 400 mg tablet 400 mg PO DAILY Qty: 5 RF: 0 Discharge Orders: Discharge Order (Routine); Ordered 08/11/19 Ordered By: Emerson Woodruff Referrals: Mague Carrero MD [Primary Care Provider] - Discharge Diet: Regular Discharge Activity: Resume usual activity Discharge Attestations Time Spent in Discharge Care*: greater than 30 min Specific Discharge Activities: Specific discharge activities: educating patient, documenting/other paperwork and evaluating patient/reviewing data Status at Discharge: Cognitive status at discharge: cognitively intact , Behavioral status at discharge: cooperative , Functional status at discharge: independent ambulation Overall status at discharge: patient is back to baseline Quality Metrics Clinical Quality Measures During this hospital stay, did patient experience: None Coding Level of Care Code Acute Imagery Analyst for g Fwd Diagnoses Respiratory failure with hypoxia J96.21 Chronicity: acute on chronic Community acquired pneumonia J18.9 Laterality: left Lung location: lower lobe of lung Failure of outpatient treatment Z78.9 COPD (chronic obstructive pulmonary disease) J44.9
[2019-08-11] MEDS: azithromycin 250 mg Tablet PO (11:49)
== END 2019-08-11 16:45 | disposition home or self-care (01) | DRG 189 ==
LOC: ER 13:21 → MEDSURG 13:27
PROVIDERS: Admitting Provider Student in an Organized Health Care Education/Training Program; Emergency Provider Emergency Medicine; Family Provider Family Medicine; PCP Family Medicine; Visit Provider Student in an Organized Health Care Education/Training Program
DX: J96.21 Acute and chronic respiratory failure with hypoxia (principal); J18.9 Pneumonia, unspecified organism; J44.9 Chronic obstructive pulmonary disease, unspecified; Z66 Do not resuscitate; Z87.891 Personal history of nicotine dependence; Z78.9 Other specified health status; Z79.1 Long term (current) use of non-steroidal anti-inflammatories (NSAID); Z79.2 Long term (current) use of antibiotics; Z79.52 Long term (current) use of systemic steroids; Z79.82 Long term (current) use of aspirin; Z99.81 Dependence on supplemental oxygen
CPT/HCPCS: 12345; 36415; 36600; 71045; 71046; 71250; 80051; 80053; 80202; 81003; 82810; 83880; 83986; 84145; 84443; 85025; 87040; 87070; 87205; 87449; 87635; 87641; 87804; 94640; 96372; 96374; 96375; 99283; J0456; J1650; J2270; J2543; J2930; J3370; J7030; J7040; J7050; J7626; Q0144

== ENCOUNTER 2019-08-16 14:34 | Outpatient (CLI) | payer MEDICARE, SELFPAY ==
--- NOTE | 2019-08-16 14:48 | XR_ITS ---
WS: [id number] CHEST 2 VIEWS HISTORY: PNEUMONIA, COPD ACUTE EXACERBATION COMPARISON: 08/08/2019 Lungs: Marked hyperexpansion with changes of severe emphysema. Mild interstitial thickening in the li ngula. Lungs are slightly more hyperexpanded as compared to the prior study. Small bilateral pleural effusions. Cardiac size: Normal. Mediastinum/Aorta: Mild atherosclerosis aorta. Bones: Normal. XR/XR chest 2V* [id number] IMPRESSION: 1. Mild progression of hyperinflation suggesting acute exacerbation of reactiv e airways disease. 2. Improved aeration in the lingula. 3. Severe emphysema and small bilateral pleural effusions.
== END 2019-08-16 14:35 | disposition home or self-care (01) ==
LOC: RADWPI 14:38
PROVIDERS: Family Provider Family Medicine; PCP Family Medicine; Visit Provider Nurse Practitioner Family
DX: J43.9 Emphysema, unspecified (principal); J18.9 Pneumonia, unspecified organism; J90 Pleural effusion, not elsewhere classified
CPT/HCPCS: 71046

== ENCOUNTER 2019-11-18 08:59 | Outpatient (RCR) | payer MEDICARE, SELFPAY | END 2019-11-23 23:59 | disposition home or self-care (01) | LOC: PULRHB 08:59 | PROVIDERS: PCP Family Medicine; Visit Provider Surgery Plastic and Reconstructive Surgery | DX: J44.9 Chronic obstructive pulmonary disease, unspecified (principal) | CPT/HCPCS: 94618 ==

== ENCOUNTER 2019-11-24 06:00 | Outpatient (RCR) | payer MEDICARE, SELFPAY | END 2019-12-24 23:59 | disposition home or self-care (01) | LOC: PULRHB 06:00 | PROVIDERS: PCP Family Medicine; Visit Provider Surgery Plastic and Reconstructive Surgery | DX: J44.9 Chronic obstructive pulmonary disease, unspecified (principal) | CPT/HCPCS: G0424 ==

== ENCOUNTER 2019-11-30 10:38 | Outpatient (CLI) | payer MEDICARE, SELFPAY ==
--- NOTE | 2019-11-30 10:46 | XR_ITS ---
WS: [id number] PROCEDURE: XR chest 2V* [id number] CLINICAL INFORMATION: Pneumonia COMPARISON: August 16, 2019 FINDINGS: Heart: Normal cardiac silhouette. Aortic calcification. Lungs: Advanced chronic emphysematous changes. No acute pulmonary infiltrates. No focal pneumonia. No pleural fluid. Hyperinflation. Bones: Normal visualized bony structures. XR/XR chest 2V* [id number] IMPRESSION: 1. Advanced chronic emphysematous changes with hyperinflation. 2. No acute pulmonary infiltrates.
== END 2019-11-30 10:39 | disposition home or self-care (01) ==
LOC: RAD 10:43 → RADWPI 10:44
PROVIDERS: Family Provider Family Medicine; PCP Family Medicine; Visit Provider Internal Medicine Critical Care Medicine
DX: J18.9 Pneumonia, unspecified organism (principal); J43.9 Emphysema, unspecified
CPT/HCPCS: 71046

== ENCOUNTER 2019-12-25 06:00 | Outpatient (RCR) | payer MEDICARE, SELFPAY | END 2020-01-24 23:59 | disposition home or self-care (01) | LOC: PULRHB 06:00 | PROVIDERS: Family Provider Family Medicine; PCP Family Medicine; Visit Provider Surgery Plastic and Reconstructive Surgery | DX: J44.9 Chronic obstructive pulmonary disease, unspecified (principal) | CPT/HCPCS: G0424 ==

== ENCOUNTER 2020-01-25 06:00 | Outpatient (RCR) | payer MEDICARE, SELFPAY | END 2020-02-23 23:59 | disposition home or self-care (01) | LOC: PULRHB 06:00 | PROVIDERS: PCP Family Medicine; Visit Provider Surgery Plastic and Reconstructive Surgery | DX: J44.9 Chronic obstructive pulmonary disease, unspecified (principal) | CPT/HCPCS: G0424 ==

== ENCOUNTER 2020-02-24 06:00 | Outpatient (RCR) | payer MEDICARE, SELFPAY | END 2020-03-25 23:59 | disposition home or self-care (01) | LOC: PULRHB 06:00 | PROVIDERS: PCP Family Medicine; Visit Provider Surgery Plastic and Reconstructive Surgery | DX: J44.9 Chronic obstructive pulmonary disease, unspecified (principal) | CPT/HCPCS: G0424 ==

== ENCOUNTER 2020-04-07 11:04 | Outpatient (CLI) | payer MEDICARE, SELFPAY ==
--- NOTE | 2020-04-07 11:15 | CT_ITS ---
WS: [id number] CT CHEST TECHNIQUE: Noncontrast CT of the chest with coronal and sagittal reformatted images. CLINICAL INFORMATION: Lung nodule COMPARISON: CT chest August 08, 2019 DLP: 334.[address] scans at [facility] use at least one of these dose optimization techniques: automat ed exposure control; mA and/or kV adjustment per patient size (includes targeted exams where dose is matched to clinical indication); or iterative reconstruction. FINDINGS: Moderate chronic emphysematous changes. No acute pulmonary infiltrates. Previously described patchy p ulmonary infiltrates and tree-in-bud infiltrates have resolved. Fibrosis of the right lung apex. Subs egmental atelectasis left lower lobe. Previously described right lower lobe opacity has resolved in t he interim. No new suspicious pulmonary opacities. No axillary lymphadenopathy. No mediastinal or hilar lymphadenopathy. Aortic calcification. Normal GE junction. Normal visualized thoracic spine. CT/CT chest wo con [id number] IMPRESSION: 1. Previously described right lower lobe opacity is no longer present. This is resolved since August 08, 2019. 2. No other suspicious pulmonary parenchymal opacities. 3. Moderate chronic emphysematous changes. 4. Previously described patchy infiltrates and tree-in-bud infiltrates have es sentially resolved since the prior examination. 5. Subsegmental atelectasis left lower lobe. 6. No mediastinal or hilar lymphadenopathy. 7. No axillary lymphadenopathy. 8. No other significant findings.
== END 2020-04-07 11:05 | disposition home or self-care (01) ==
PROVIDERS: PCP Family Medicine; Visit Provider Internal Medicine Critical Care Medicine
DX: R91.1 Solitary pulmonary nodule (principal); J98.11 Atelectasis
CPT/HCPCS: 71250

== ENCOUNTER 2020-07-31 09:44 | Outpatient (CLI) | payer MEDICARE, SELFPAY ==
--- NOTE | 2020-07-31 09:48 | XRR_ITS ---
PROCEDURE INFORMATION: Exam: XR Chest Exam date and time: 07/31/2020 10:33 AM Age: 70 years old Clinical indication: Cough TECHNIQUE: Imaging protocol: XR of the chest Views: 2 views. COMPARISON: CT chest con [id number] 04/07/2020 11:19 AM FINDINGS: Lungs: The lungs are hyperinflated compatible with COPD. No focal peripheral lung consolidation, air bronchogram formation, or silhouette sign. Pleural spaces: No pleural effusion or pneumothorax. Heart/Mediastinum: The cardiac silhouette is not enlarged. The mediastinal contours are normal. Bones/joints: No acute osseous abnormality. XR/XR chest 2V* [id number] IMPRESSION: COPD.
== END 2020-07-31 09:45 | disposition home or self-care (01) ==
PROVIDERS: PCP Family Medicine; Visit Provider Internal Medicine Critical Care Medicine
DX: R05 Cough (principal); J44.9 Chronic obstructive pulmonary disease, unspecified
CPT/HCPCS: 71046

== ENCOUNTER 2021-04-25 06:00 | Outpatient (RCR) | payer MEDICARE, SELFPAY | END 2021-05-25 23:59 | disposition home or self-care (01) | LOC: PULRHB 06:00 | PROVIDERS: PCP Pediatrics; Visit Provider Surgery Plastic and Reconstructive Surgery | DX: J44.9 Chronic obstructive pulmonary disease, unspecified (principal) | CPT/HCPCS: 87635 ==

== ENCOUNTER 2021-05-01 11:32 | Outpatient (CLI) | payer MEDICARE, SELFPAY ==
--- NOTE | 2021-05-01 13:37 | PFTS_ITS ---
Date of Study:05/01/21 Date of Dictation: 05/01/2021 MECHANICS: Postbronchodilator forced vital capacity (FVC) is reduced Postbronchodilator forced expiratory volume in one second (FEV1) is severely reduced 32 %. FEV1/FVC is reduced. There is no significant response to bronchodilators FLOW VOLUME LOOP: Sloping of expiratory limb suggestive of severe airway obstruction . LUNG VOLUMES: Total lung capacity (TLC) is increased. Residual volume (RV) is increased suggestive of severe air trapping. DIFFUSING CAPACITY FOR CARBON MONOXIDE: Severely reduced 40% . INTERPRETATION: The pulmonary function tests are consistent with severe obstructive ventilatory disease with severe air trapping on lung volumes. There is severe reduction in gas transfer. Overall constellation of findings on this PFT are consistent with emphysema. Clinical correlation recommended MTDD
== END 2021-05-01 11:33 | disposition home or self-care (01) ==
LOC: RT 11:40
PROVIDERS: PCP Pediatrics; Visit Provider Internal Medicine Critical Care Medicine
DX: J44.9 Chronic obstructive pulmonary disease, unspecified (principal)
CPT/HCPCS: 94060; 94618; 94726; 94729; J7611

== ENCOUNTER 2021-05-01 11:32 | Outpatient (CLI) | payer MEDICARE, SELFPAY ==
--- NOTE | 2021-05-01 | USCV_ITS ---
Dobutamine Stress Echo Agnieszka Carolina Age: 70 Gender: F : 1950 Exam Date: 05/01/2021 12:44 Ordering Phys: Renato Cruz M.D ([email or web address]) Technologist: SHARIF [place]am [place] [facility] [place] [facility] [place]ication: Chest pain, Dyspnea on exertion Rhythm: Sinus Patient History: Chest pain, Dyspnea Cardiac Medications: NONE Medications in past 24 hours: Contrast: Total Dose (mL): Stress Results Protocol: Pharmacologic Peak Dose (???g/kg/min): Duration (min:sec): 11:17 Atropine:(mg) 0.2 Target HR: 129 Double Product: Resting HR: 79 Resting BP: 114 / 73 Peak HR: 149 Peak BP: 136 / 76 Max Predicted HR: 152 98 % Max Predicted HR Stress Summary: The patient's target heart rate was achieved. The hemodynamic response to stress was normal. BP Response: Normal Reason for Termination: The patients target heart rate was achieved, Protocol complete, Exceeded target heart rate (85% max predicted) Cardiac Symptoms: Chest pain, shortness of breath ECG Analysis Resting EKG: Showed sinus rhythm, normal axis, no significant ST-T changes at the baseline noted Stress EKG: At the peak dobutamine infusion level, No significant ST-T changes suggestive of ischemia noted. Frequent PVCs were noted during exercise Arrhythmia: PVCs during exercise MEASUREMENTS (Male/Female) Normal Values FINDINGS On baseline LV systolic function appears to be normal without regional wall motion abnormalities. LVEF is 55 to 60%. Grossly normal valves Patient achieved 98% of maximum predicted heart rate. Images were obtained above target heart rate. Stress images showed no evidence of ischemia and LV EF was more than 65% with no regional wall motion abnormalities. CONCLUSIONS 1. Normal LV systolic function on baseline 2. Patient achieved target heart rate with dobutamine infusion 3. Dobutamine stress echocardiogram is negative for ischemia Renato Cruz MD (Electronically Signed) Final Date: 20 May 2021 15:37 S
--- NOTE | 2021-05-01 11:48 | ECG_ITS ---
[facility] Test Date: 2021-05-01 Pat Name: Agnieszka Carolina Department: Room: Gender: Female Mill Turner: Vanda Pal : 1950 Requested By: Renato Cruz Order Number: [id number] Leonel MD: Renato Cruz M.D. Interpretive Statements NAME OF STUDY: DOBUTAMINE STRESS ECHOCARDIOGRAM INDICATION: [Chest Pain, Dyspnea, ] At 1302 Complained of chest pain 5/10. At 1303 c/o CP 9/10. After IVP metoprolol pt symptoms eased and was CP free by end of recovery. EXERCISE DATA: The patient underwent dobutamine stress echocardiogram. Baseline heart rate was 70 beats per minute. Baseline blood pressure was 114/73 millimeters of mercury. Target heart rate was 126 beats per minute. Maximum heart rate achieved was 149 bpm, which was 118% of the target heart rate. Maximum blood pressure was 131/55 millimeters of mercury. ELECTROCARDIOGRAM: BASELINE: Showed sinus rhythm, normal axis, no significant ST-T changes at the baseline noted. [] EXERCISE: At the peak exercise level, [] No significant ST-T changes suggestive of ischemia noted. Frequent PVCs were noted during exercise [] RECOVERY: During the recovery period, heart rate dropped appropriately. No significant ST-T changes in the recovery suggestive of ischemia noted. [] CONCLUSION: 1. Target heart rate was achieved with dobutamine infusion. 2. Heart rate response was appropriate 3. Blood pressure response was appropriate 4. Patient did have chest pain symptoms with the dobutamine infusion which resolved by the end of the procedure after receiving IV metoprolol 5. Electrocardiogram portion of the stress test was not suggestive of ischemia. 6. Dobutamine stress echocardiogram will be reported separately. Electronically Signed On 05-19-2021 12:45:43 DINING ROOM HELPER by Renato Cruz M.D. [email or web address]
[2021-05-01 12:15] VITALS: BMI 16.5
[2021-05-01] MEDS: sodium chloride 0.9% 250 ML 999 ML IV (12:50)
[2021-05-01] MEDS: DOBUTamine drip 500 MG/250 ML PREMIX 14 MG IV (12:50)
[2021-05-01] MEDS: atropine 0.1 mg/mL Syr 10 mL 0.5 MG IVP (13:01)
[2021-05-01] MEDS: metoprolol tartrate 1 mg/1 mL SDV 5 mL 5 MG IVP (13:04)
[2021-05-01 13:35] VITALS: BP 101/71; PULSE 83
== END 2021-05-01 11:33 | disposition home or self-care (01) ==
LOC: CDL 11:40
PROVIDERS: PCP Pediatrics; Visit Provider Internal Medicine
DX: R07.9 Chest pain, unspecified (principal); R06.09 Other forms of dyspnea; R06.02 Shortness of breath; J44.9 Chronic obstructive pulmonary disease, unspecified
CPT/HCPCS: 93017; 93350; 94060; 94618; 94726; 94729; J0461; J1250; J3490; J7050; J7611

== ENCOUNTER → 2021-09-13 15:03 | Outpatient (BNVA) | payer MEDICARE, SELFPAY | PROVIDERS: PCP Pediatrics; Visit Provider Internal Medicine Critical Care Medicine | DX: J44.9 Chronic obstructive pulmonary disease, unspecified (principal); J96.21 Acute and chronic respiratory failure with hypoxia; R91.1 Solitary pulmonary nodule; Z87.891 Personal history of nicotine dependence; Z99.81 Dependence on supplemental oxygen | CPT/HCPCS: 99214 ==

== ENCOUNTER 2021-12-11 13:03 | Outpatient (CLI) | payer MEDICARE, SELFPAY | END 2021-12-11 13:04 | disposition home or self-care (01) | PROVIDERS: PCP Pediatrics; Visit Provider Internal Medicine Critical Care Medicine | DX: J44.9 Chronic obstructive pulmonary disease, unspecified (principal) | CPT/HCPCS: 94618 ==

== ENCOUNTER → 2021-12-12 11:00 | Outpatient (BNVA) | payer MEDICARE, SELFPAY | PROVIDERS: PCP Pediatrics; Visit Provider Internal Medicine Critical Care Medicine | DX: J43.8 Other emphysema (principal); J96.21 Acute and chronic respiratory failure with hypoxia; Z99.81 Dependence on supplemental oxygen; Z87.891 Personal history of nicotine dependence | CPT/HCPCS: 99214 ==

== ENCOUNTER → 2022-02-15 10:00 | Outpatient (BNVA) | payer MEDICARE, SELFPAY | PROVIDERS: PCP Pediatrics; Visit Provider Internal Medicine Critical Care Medicine | DX: J44.9 Chronic obstructive pulmonary disease, unspecified (principal); Z87.891 Personal history of nicotine dependence; R91.1 Solitary pulmonary nodule; J96.21 Acute and chronic respiratory failure with hypoxia; Z99.81 Dependence on supplemental oxygen | CPT/HCPCS: 99214 ==

== ENCOUNTER 2022-07-08 18:13 | Emergency (ER) | payer MEDICARE, SELFPAY ==
[2022-07-08 18:20] VITALS: BP 165/87; PULSE 80; RESP 24; TEMP 37.8; O2SAT 92
--- NOTE | 2022-07-08 18:24 | XRR_ITS ---
PROCEDURE INFORMATION: Exam: XR Chest Exam date and time: 07/08/2022 6:38 PM Age: 71 years old Clinical indication: Shortness of breath; Additional info: SOB TECHNIQUE: Imaging protocol: Radiologic exam of the chest. Views: 1 view. COMPARISON: CR XR chest 2V* [id number] 07/31/2020 10:27 AM FINDINGS: Lungs: Lungs show symmetric chronic marked hyperexpansion and appear emphysematous. No consolidation. Pleural spaces: Unremarkable. No pleural effusion. No pneumothorax. Heart/Mediastinum: Unremarkable. No cardiomegaly. Bones/joints: No acute findings. XR/XR chest 1V portable [id number] IMPRESSION: No acute findings. Findings consistent with COPD.
--- NOTE | 2022-07-08 18:30 | ED_ITS ---
HPI - SOB/Dyspnea General: Chief Complaint: Shortness of Breath/Dyspnea Stated Complaint: SOB Time Seen by Provider: 07/08/22 18:22 Source: patient Mode of arrival: ambulatory Limitations: no limitations History of Present Illness: HPI Narrative: 71-year-old female has a long history of COPD she states she wears 2 to 3 L oxygen at home states over the last week she has had increasing shortness of breath she has had low-grade fevers over the last 2 days as well with increased cough. She denies any vomiting or diarrhea. She is just states that she feels like she is much more short of breath as well having harder time breathing. Denies any vomiting or diarrhea. Associated symptoms: Reports fever(s); Deny abdominal pain, chest pain, nausea or vomiting Review of Systems Const: Reports: fever(s) Eyes: Denies: blurry vision or eye discomfort ENMT: Denies: throat pain or dental pain Card: Denies: chest pain Resp: Reports: dyspnea, non-productive cough and wheezing GI: Denies: abdominal pain, nausea, vomiting or diarrhea : Denies: dysuria Musc: Denies: neck pain or back pain Skin/Breast: Denies: rash Neuro: Denies: headache(s) Psych: Denies: depression Jose Martin/Lymph: Denies: easy bruising All/Imm: Denies: urticaria PFSH ED PFSH: Medical History (Updated 07/08/22 @ 20:03 by Johana Monet MD) COPD (chronic obstructive pulmonary disease) Degenerative arthritis of hip Hip pain, bilateral Joint pain Lumbar spine pain Osteoarthritis Rhinitis TMJ (dislocation of temporomandibular joint) Surgical History History of appendectomy History of hysterectomy History of mandibular surgery History of tonsillectomy and adenoidectomy Family History Mother Myocardial infarction Hypertension Social History Smoking and tobacco status: former smoker Quit status (tobacco): has quit using tobacco Year quit tobacco: 2011 - 2PPD x 40 Years Alcohol intake: never Lives independently: Yes Household members: none Marital status: Current occupational status: retired History of recent travel: No Current gender identity: Female Physical Exam Const: COMMON NORMALS: patient oriented x3 HENMT: COMMON NORMALS: normocephalic and atraumatic HEAD & SCALP: normocephalic and atraumatic Eye: COMMON NORMALS: Equal, round and reactive pupils present and EOMs intact bilaterally PUPIL: Yes Equal, round and reactive pupils present Neck/C-Spine: COMMON NORMALS: full ROM and supple Chest: COMMONS NORMALS: normal inspection of the chest and normal palpation of entire chest wall Resp: COMMON NORMALS: No retractions and No use of accessory muscles EFFORT & INSPECTION: Yes tachypneic AUSCULTATION: wheezes Cardio: COMMON NORMALS: regular rate, regular rhythm and No murmurs present (Cardio) RATE: regular rate RHYTHM: regular rhythm GI: COMMON NORMALS: Normal to inspection, nondistended, normoactive bowel sounds present, Soft to palpation, non-tender and no masses PALPATION: Yes Soft to palpation Extremity: COMMON NORMALS: normal to inspection and full ROM Neuro: COMMON NORMALS: patient oriented x3, moves all extremities and no focal motor deficits Psych: COMMON NORMALS: mental status grossly normal, Normal thought process present and cooperative THOUGHT PROCESS: Normal thought process present Skin: COMMON NORMALS: no rashes or lesions noted and no wounds GENERAL SKIN EXAM: no rashes or lesions noted Course Vital Signs: Vital signs: Vital Signs Temperature 100.0 F H 07/08/22 18:20 Pulse Rate 72 07/08/22 18:53 Respiratory Rate 18 07/08/22 18:53 Blood Pressure 165/87 07/08/22 18:20 Pulse Oximetry 95 07/08/22 18:53 Oxygen Delivery Nj thod 07/08/22 18:53 Oxygen Flow Rate 3 07/08/22 18:20 Fraction of Inspir ed Oxygen 3 07/08/22 18:53 MDM - SOB/Dyspnea Medical Decision Making Patient presents for history of COPD along with cough low-grade fevers x-ray here shows no acute abnormalities flu and COVID are both negative she feels much improved here after breathing treatment she is in no distress not requiring any extra oxygen. Feel she is stable for discharge we will place her on doxycycline along with a steroid boost she is to follow-up with PCP and return if worsening. Lab Data 07/08/22 18:47 07/08/22 18:47 Labs/Radiology: Radiology Impressions Chest X-Ray 07/08/22 18:24 IMPRESSION: No acute findings. Findings consistent with COPD. Laboratory Results WBC 11.0 10^3/uL (4.0-10.0) H 07/08/22 18:47 RBC 4.45 10^6/uL (4.1-5.3) 07/08/22 18:47 Hgb 13.0 g/dL (11.5-15.3) 07/08/22 18:47 Hct 40.6 % (37.0-47.0) 07/08/22 18:47 MCV 91.2 fl (81-99) 07/08/22 18:47 MCH 29.2 pg (28.0-34.0) 07/08/22 18:47 MCHC 32.0 g/dL (30.0-36.0) 07/08/22 18:47 RDW 13.3 % (12.1-15.1) 07/08/22 18:47 Plt Count 302 10^3/cmm (130-400) 07/08/22 18:47 MPV 9.1 fL (7.4-10.4) 07/08/22 18:47 Neut % (Auto) 76.8 % 07/08/22 18:47 Lymph % (Auto) 14.2 % 07/08/22 18:47 [place] % (Auto) 6.4 % 07/08/22 18:47 Eos % (Auto) 1.5 % 07/08/22 18:47 Baso % (Auto) 0.8 % 07/08/22 18:47 Neut # (Auto) 8.44 10^3/uL (1.8-7.7) H 07/08/22 18:47 Lymph # (Auto) 1.6 10^3/uL (0.8-4.8) 07/08/22 18:47 [place] # (Auto) 0.7 10^3/uL (0.2-0.9) 07/08/22 18:47 Eos # (Auto) 0.2 10^3/uL (0.0-0.8) 07/08/22 18:47 Baso # (Auto) 0.1 10^3/uL (0.0-0.1) 07/08/22 18:47 Nucleated RBC % (auto) 0 % 07/08/22 18:47 Nucleated RBCs # 0.0 /100WBC 07/08/22 18:47 PT 12.70 SECONDS (12.1-14.9) 07/08/22 18:47 INR 0.92 (0.8-1.2) 07/08/22 18:47 Specimen Type Arterial 07/08/22 18:40 Sample Site Brachial, left 07/08/22 18:40 ABG pH 7.42 (7.35-7.45) 07/08/22 18:40 ABG pCO2 46.1 mmHg (35-45) H 07/08/22 18:40 ABG pO2 79.4 mmHg (80.0-100.0) L 07/08/22 18:40 ABG HCO3 29.9 mmol/L (22-26) H 07/08/22 18:40 ABG Base Excess 4.5 mmol/L (-2.0-2.0) H 07/08/22 18:40 Jose Test N/a 07/08/22 18:40 Hematocrit 42.9 % (37-47) 07/08/22 18:40 Hgb O2 Saturation 93.2 % (95-100) L 07/08/22 18:40 Carboxyhemoglobin 3.8 %THgb (0.4-20.1) 07/08/22 18:40 Methemoglobin 0.5 % (0.4-1.5) 07/08/22 18:40 Total Hemoglobin 14.0 g/dL (12-16) 07/08/22 18:40 O2 Delivery Device Nc 07/08/22 18:40 O2 Liters/Min 3.0 % 07/08/22 18:40 FiO2 32.0 % 07/08/22 18:40 Business Process Associate ID Gd 07/08/22 18:40 Sodium 137 mmol/L (136-145) 07/08/22 18:47 Potassium 4.3 mmol/L (3.5-5.1) 07/08/22 18:47 Chloride 98 mmol/L (98-107) 07/08/22 18:47 Carbon Dioxide 30 mmol/L (22-29) H 07/08/22 18:47 Anion Gap 13.3 (5-19) 07/08/22 18:47 BUN 8 mg/dL (8-23) 07/08/22 18:47 Creatinine 0.5 mg/dL (0.5-0.9) 07/08/22 18:47 GFR Calculation 122.3 mL/min (90-130) 07/08/22 18:47 Glucose 95 mg/dL (65-115) 07/08/22 18:47 Calculated Osmolality 282 mOsm/kg (285-295) L 07/08/22 18:47 Calcium 8.8 mg/dL (8.5-10.5) 07/08/22 18:47 Total Bilirubin 0.4 mg/dL (0.15-1.2) 07/08/22 18:47 AST 18 U/L (0-32) 07/08/22 18:47 ALT 9 U/L (0-33) 07/08/22 18:47 Alkaline Phosphatase 91 U/L (35-105) 07/08/22 18:47 NT-Pro-B Natriuret Pep 151 pg/mL (0-125) H 07/08/22 18:47 Total Protein 6.8 g/dL (6.6-8.7) 07/08/22 18:47 Albumin 4.3 g/dL (3.5-5.2) 07/08/22 18:47 Globulin 2.5 g/dL (1.3-4.6) 07/08/22 18:47 Influenza Type A Ag negative (Negative) 07/08/22 19:05 Influenza Type B Ag negative (Negative) 07/08/22 19:05 SARS-CoV-2 Ag (Rapid) negative (Negative) 07/08/22 19:05 EKG Data EKG 1: I personally reviewed and interpreted this EKG as follows: EKG Interpretation Date: 07/08/22 EKG interpretation time: 18:36 Interpretation: nsr hr [address] or t wave abnormalities qrs 82 qtc 403 Discharge Plan Discharge Patient Disposition: Home Clinical Impression: Acute exacerbation of chronic obstructive airways disease Condition: Stable Prescriptions: New prednisone 50 mg tablet 50 mg PO DAILY Qty: 5 0RF doxycycline hyclate 100 mg tablet 100 mg PO BID 7 Days Qty: 14 0RF No Action benzonatate [Tessalon Perles] 100 mg capsule 100 mg PO TID PRN (Reason: cough) Qty: 90 5RF nystatin 100,000 unit/mL suspension 5 ml PO QID 10 Days Qty: 200 0RF Rx Instructions: swish and swallow ipratropium-albuterol 0.5 mg-3 mg(2.5 mg base)/3 mL solution for nebulization 3 ml INHALATION Q6H PRN (Reason: unknown) trazodone 100 mg tablet 50 mg PO DAILY nitroglycerin 0.4 mg tablet, sublingual 0.4 mg sublingual Q5M PRN (Reason: chest pain) Qty: 25 1RF Rx Instructions: do not exceed 3 doses per episode albuterol sulfate [Ventolin HFA] 90 mcg/actuation HFA aerosol inhaler 2 puff INHALATION Q6H PRN (Reason: Shortness Of Breath) Qty: 8.5 6RF budesonide 0.5 mg/2 mL suspension for nebulization See Rx Instructions .ROUTE .COMPLEX Qty: 60 11RF Dose Instruction: USE 1 VIAL IN NEBULIZER TWICE DAILY - rinse mouth after treatment Rx Instructions: USE 1 VIAL IN NEBULIZER TWICE DAILY - rinse mouth after treatment revefenacin [Yupelri] 175 mcg/3 mL solution for nebulization See Rx Instructions .ROUTE .COMPLEX Qty: 30 11RF Dose Instruction: USE 1 VIAL IN NEBULIZER DAILY Rx Instructions: USE 1 VIAL IN NEBULIZER DAILY formoterol fumarate [Perforomist] 20 mcg/2 mL solution for nebulization See Rx Instructions .ROUTE .COMPLEX Qty: 60 11RF Dose Instruction: USE 1 VIAL IN NEBULIZER TWICE DAILY - morning and evening Rx Instructions: USE 1 VIAL IN NEBULIZER TWICE DAILY - morning and evening fluticasone propionate [Flonase Allergy Relief] 50 mcg/actuation spray,suspension 1 spray intranasal BID 30 Days Qty: 16 3RF Rx Instructions: administer into each nostril Tylenol 325 mg Tablet 325 mg PO PRN ibuprofen 200 mg Tablet 600 mg PO PRN Discharge Orders: Discharge ED (Routine); Ordered 07/08/22 Ordered By: Johana Monet Referrals: Lucía Elizondo MD [Primary Care Provider] - 1-3 days Discharge Diet: Advance as tolerated Discharge Activity: Resume usual activity Patient Instructions: COPD (Chronic Obstructive Pulmonary Disease) (ED) Coding Level of Care Code ED [employer] for Anjelica Lambert
--- NOTE | 2022-07-08 18:36 | ECG_ITS ---
[facility] Test Date: 2022-07-08 Pat Name: Agnieszka Carolina Department: Room: Gender: Female Yard Laborer: : 1950 Requested By: Johana Monet Order Number: [id number] Leonel MD: Renato Cruz M.D. Measurements Intervals [place] Rate: 67 P: 87 [place]: 138 QRS: 85 QRSD: 82 T: 84 QT: 388 QTc: 411 Interpretive Statements SINUS RHYTHM POSSIBLE RIGHT VENTRICULAR CONDUCTION DELAY [RSR (QR) IN V1/V2] Compared to ECG 03/15/2019 09:07:48 No significant changes Electronically Signed On 07-09-2022 7:44:52 DYE BOX OPERATOR by Renato Cruz M.D. [id number]
[2022-07-08 18:52] LABS: Basophils # 0.1 10^3/uL (0.0-0.1); Basophils % 0.8 %; Eosinophils # 0.2 10^3/uL (0.0-0.8); Eosinophils % 1.5 %; Hematocrit 40.6 % (37.0-47.0); Lymphocytes # 1.6 10^3/uL (0.8-4.8); Lymphocytes % 14.2 %; Mean Corpuscular Hemoglobin 29.2 pg (28.0-34.0); Mean Corpuscular Volume 91.2 fl (81-99); Mean Platelet Volume 9.1 fL (7.4-10.4); Monocytes # 0.7 10^3/uL (0.2-0.9); Monocytes % 6.4 %; Neutrophils # 8.44 10^3/uL (1.8-7.7); Neutrophils % 76.8 %; Nucleated Red Blood Cells % 0 %; Platelet Count 302 10^3/cmm (130-400); Red Blood Count 4.45 10^6/uL (4.1-5.3); Red Cell Distribution Width 13.3 % (12.1-15.1)
[2022-07-08 18:53] VITALS: PULSE 72; RESP 18; O2SAT 95
[2022-07-08] MEDS: albuterol 2.5 mg/3 mL Neb INHALATION (18:53)
[2022-07-08] MEDS: ipratropium 0.5 mg/2.5 mL Neb INHALATION (18:53)
[2022-07-08 18:57] LABS: Blood Gas Operator Identificat GD; Blood Gas Sample Site Brachial, left; Blood Gas Sample Type Arterial; Oxygen Device NC
[2022-07-08 19:00] LABS: ABG PCO2 46.1 mmHg (35-45); ABG PH Result 7.42 (7.35-7.45); Arterial Blood Gas Hematocrit 42.9 % (37-47); Base Excess ABG 4.5 mmol/L (-2.0-2.0); Carboxyhemoglobin 3.8 %THgb (0.4-20.1); HCO3 ABG 29.9 mmol/L (22-26); HGB O2 Sat 93.2 % (95-100); Methemoglobin 0.5 % (0.4-1.5); PO2 ABG 79.4 mmHg (80.0-100.0)
[2022-07-08 19:03] LABS: INR 0.92 (0.8-1.2)
[2022-07-08] MEDS: acetaminophen 500 mg Tablet 1000 MG PO (19:13)
[2022-07-08 19:20] LABS: Alanine Aminotransferase 9 U/L (0-33); Albumin Level 4.3 g/dL (3.5-5.2); Alkaline Phosphatase 91 U/L (35-105); Anion Gap 13.3 (5-19); Aspartate Amino Transferase 18 U/L (0-32); Blood Urea Nitrogen 8 mg/dL (8-23); Calcium 8.8 mg/dL (8.5-10.5); Carbon Dioxide 30 mmol/L (22-29); Chloride 98 mmol/L (98-107); Globulin 2.5 g/dL (1.3-4.6); Glomerular Filtration Rate 122.3 mL/min (90-130); Glucose 95 mg/dL (65-115); NT Pro B Type Natriuretic Pept 151 pg/mL (0-125); Osmolality Calculated 282 mOsm/kg (285-295); Potassium 4.3 mmol/L (3.5-5.1); Sodium 137 mmol/L (136-145); Total Bilirubin 0.4 mg/dL (0.15-1.2); Total Protein 6.8 g/dL (6.6-8.7)
[2022-07-08 19:40] LABS: Influenza A by IFA negative (Negative); Influenza B by IFA negative (Negative)
[2022-07-08 19:54] LABS: SARS Covid-2 Antigen negative (Negative)
[2022-07-08] MEDS: doxycycline 100 mg Tablet PO (20:08)
== END 2022-07-08 20:10 | disposition home or self-care (01) ==
PROVIDERS: Emergency Provider Emergency Medicine; PCP Pediatrics
DX: J44.1 Chronic obstructive pulmonary disease with (acute) exacerbation (principal); Z20.822 Contact with and (suspected) exposure to COVID-19; Z87.891 Personal history of nicotine dependence
CPT/HCPCS: 36600; 71045; 80053; 82805; 83880; 85025; 85610; 87426; 87804; 93005; 94640; 96374; 99285; J2930; J7613; J7644

== ENCOUNTER → 2022-07-22 10:00 | Outpatient (BNVA) | payer MEDICARE, SELFPAY | PROVIDERS: PCP Pediatrics; Visit Provider Internal Medicine Pulmonary Disease | DX: J44.9 Chronic obstructive pulmonary disease, unspecified (principal); J96.21 Acute and chronic respiratory failure with hypoxia; J31.0 Chronic rhinitis; J32.9 Chronic sinusitis, unspecified; Z87.891 Personal history of nicotine dependence; Z99.81 Dependence on supplemental oxygen | CPT/HCPCS: 99214 ==

== ENCOUNTER 2023-01-07 16:01 | Outpatient (CLI) | payer MEDICARE, SELFPAY ==
--- NOTE | 2023-01-07 16:17 | XRR_ITS ---
PROCEDURE INFORMATION: Exam: XR Chest Exam date and time: 01/07/2023 4:20 PM Age: 72 years old Clinical indication: Fever and shortness of breath TECHNIQUE: Imaging protocol: Radiologic exam of the chest. Views: 2 views. COMPARISON: CR (CHEST, ) 07/08/2022 6:38 PM FINDINGS: Lungs: Emphysematous changes. Pleural spaces: Unremarkable. No pleural effusion. No pneumothorax. Heart/Mediastinum: Unremarkable. No cardiomegaly. Bones/joints: Unremarkable. XR/XR chest 2V* [id number] IMPRESSION: 1. No acute findings. 2. Emphysematous changes.
== END 2023-01-07 16:02 | disposition home or self-care (01) ==
LOC: RAD 16:06
PROVIDERS: PCP Pediatrics; Visit Provider Pediatrics
DX: R50.9 Fever, unspecified (principal); R06.02 Shortness of breath
CPT/HCPCS: 71046

== ENCOUNTER → 2023-03-06 14:33 | Outpatient (BNVA) | payer MEDICARE, SELFPAY | PROVIDERS: PCP Pediatrics; Visit Provider Internal Medicine Pulmonary Disease | DX: J44.9 Chronic obstructive pulmonary disease, unspecified (principal); J96.21 Acute and chronic respiratory failure with hypoxia; J31.0 Chronic rhinitis; K11.7 Disturbances of salivary secretion; Z87.891 Personal history of nicotine dependence; Z99.81 Dependence on supplemental oxygen | CPT/HCPCS: 99214 ==

== ENCOUNTER → 2023-10-06 12:41 | Outpatient (BNVA) | payer MEDICARE, SELFPAY | PROVIDERS: PCP Pediatrics; Visit Provider Internal Medicine Pulmonary Disease | DX: J43.2 Centrilobular emphysema (principal); R91.1 Solitary pulmonary nodule; J96.21 Acute and chronic respiratory failure with hypoxia; J31.0 Chronic rhinitis; J32.9 Chronic sinusitis, unspecified; J98.6 Disorders of diaphragm; Z99.81 Dependence on supplemental oxygen | CPT/HCPCS: 99214 ==

== ENCOUNTER 2023-10-23 15:16 | Observation (INO) | payer MEDICARE, SELFPAY ==
[2023-10-23] VITALS (9 sets, daily range): BP systolic 125–166; BP diastolic 55–79; PULSE 84–112; RESP 16–28; TEMP 36.4–37; O2SAT 82–98; BMI 16.2
--- NOTE | 2023-10-23 15:45 | XRR_ITS ---
PROCEDURE INFORMATION: Exam: XR Chest Exam date and time: 10/23/2023 3:52 PM Age: 73 years old Clinical indication: Shortness of breath; Patient HX: SOB and cp for the last few weeks. TECHNIQUE: Imaging protocol: Radiologic exam of the chest. Views: 1 view. COMPARISON: CR XR chest 2V* [id number] 01/07/2023 4:20 PM FINDINGS: Lungs: Hyperinflated lungs with underlying emphysema. No consolidation. Pleural spaces: Unremarkable. No pleural effusion. No pneumothorax. Heart/Mediastinum: Unremarkable. No cardiomegaly. Bones/joints: Unremarkable. XR/XR chest 1V portable [id number] IMPRESSION: Hyperinflated lungs. Underlying emphysema. No acute findings.
--- NOTE | 2023-10-23 15:45 | ECG_ITS ---
[facility] Test Date: 2023-10-23 Pat Name: Agnieszka Carolina Department: Room: Gender: Female Artist Scientific: : 1950 Requested By: Johana Monet Order Number: [id number] Leonel MD: Renato Cruz M.D. Measurements Intervals [place] Rate: 89 P: 89 [place]: 149 QRS: 50 QRSD: 84 T: 83 QT: 348 QTc: 424 Interpretive Statements SINUS RHYTHM WITH OCCASIONAL VENTRICULAR PREMATURE COMPLEXES POSSIBLE RIGHT ATRIAL ENLARGEMENT [0.25mV P-WAVE] POSSIBLE LEFT ATRIAL ENLARGEMENT [-0.1mV P-WAVE IN V1/V2] POSSIBLE RIGHT VENTRICULAR CONDUCTION DELAY [RSR (QR) IN V1/V2] NONSPECIFIC T-WAVE ABNORMALITY Compared to ECG 07/08/2022 18:36:33 Ventricular premature complex(es) now present T-wave abnormality now present Electronically Signed On 10-24-2023 12:34:51 CDT by Renato Cruz M.D. [id number]
[2023-10-23] MEDS: ipratropium-albuterol 3 mL Neb INHALATION (15:58)
[2023-10-23] MEDS: albuterol 2.5 mg/3 mL Neb INHALATION (15:58)
[2023-10-23] MEDS: methylPREDNISolone sod succ 125 mg/2 mL INJ IVP (16:00)
[2023-10-23 16:07] LABS: Arterial Blood Gas Hematocrit 40.9 % (37-47); Base Excess ABG 1.7 mmol/L (-2.0-2.0); Blood Gas Allen Test Pos; Blood Gas Sample Type Arterial; Carboxyhemoglobin 3.5 %THgb (0.4-20.1); HCO3 ABG 29.7 mmol/L (22-26); HGB O2 Sat 94.5 % (95-100); Methemoglobin 0.4 % (0.4-1.5); Total Hemoglobin 13.3 g/dL (12-16)
[2023-10-23 16:08] LABS: ABG PCO2 60.9 mmHg (35-45); Blood Gas Operator Identificat MONRO; Blood Gas Sample Site Radial, right; Oxygen Device NC; PO2 FiO2 Ratio Arterial Blood 0
[2023-10-23 16:09] LABS: Basophils # 0.1 10^3/uL (0.0-0.1); Eosinophils # 0.5 10^3/uL (0.0-0.8); Eosinophils % 3.5 %; Hematocrit 43.8 % (36-47); Lymphocytes % 7.6 %; Mean Corpuscular Volume 93.8 fl (85-98); Mean Platelet Volume 8.8 fL (7.4-10.4); Monocytes # 0.7 10^3/uL (0.2-0.9); Monocytes % 5.1 %; Neutrophils # 10.94 10^3/uL (1.8-7.7); Neutrophils % 82.3 %; Nucleated Red Blood Cells % 0 %; Platelet Count 291 10^3/cmm (157-399); Red Blood Count 4.67 10^6/uL (3.85-5.65); Red Cell Distribution Width 12.4 % (12.1-15.1); White Blood Count 13.29 10^3/uL (3.29-11.43)
--- NOTE | 2023-10-23 16:15 | ED_ITS ---
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 She states she has a chronic cough no new cough no fever. States that her dyspnea is worse with exertion she denies any chest pain. Associated symptoms: Deny abdominal pain, chest pain, fever(s), nausea or vomiting Review of Systems 2 Const: Denies: fever(s), chills, body aches or change in appetite ENMT: Denies: throat pain or dental pain Card: Denies: chest pain Resp: Reports: dyspnea GI: Denies: abdominal pain, nausea, vomiting or diarrhea : Denies: dysuria Musc: Denies: neck pain or back pain Skin/Breast: Denies: rash Neuro: Denies: headache(s) PFSH ED 2 PFSH: Medical History (Updated 10/23/23 @ 17:19 by Johana Monet MD) TMJ (dislocation of temporomandibular joint) COPD (chronic obstructive pulmonary disease) Rhinitis Joint pain Osteoarthritis Degenerative arthritis of hip Hip pain, bilateral Lumbar spine pain Surgical History History of mandibular surgery History of appendectomy History of hysterectomy History of tonsillectomy and adenoidectomy Family History Mother Myocardial infarction Hypertension Social History Smoking and tobacco/nicotine status: former use of tobacco/nicotine Quit status (tobacco/nicotine): has quit using Year quit tobacco: 2011 - 2PPD x 40 Years Alcohol intake: never Substance/Drug Use: never Lives independently: Yes Household members: none Marital status: Current occupational status: retired Do you think of yourself as: Straight/Heterosexual Current gender identity: Female Physical Exam 2 Const: COMMON NORMALS: patient oriented x3 GENERAL APPEARANCE: ill appearing HENMT: COMMON NORMALS: normocephalic and atraumatic HEAD & SCALP: n ormocephalic and atraumatic Neck/C-Spine: COMMON NORMALS: full ROM and supple Chest: COMMONS NORMALS: normal inspection of the chest Resp: COMMON NORMALS: No retractions EFFORT & INSPECTION: Yes tachypneic AUSCULTATION: wheezes Cardio: COMMON NORMALS: regular rate, regular rhythm and No murmurs present (Cardio) RATE: regular rate RHYTHM: regular rhythm GI: COMMON NORMALS: Normal to inspection, nondistended, normoactive bowel sounds present, Soft to palpation, non-tender and no masses PALPATION: Yes Soft to palpation Extremity: COMMON NORMALS: normal to inspection and full ROM Neuro: COMMON NORMALS: patient oriented x3, moves all extremities and no focal motor deficits Psych: COMMON NORMALS: mental status grossly normal, Normal thought process present and cooperative THOUGHT PROCESS: Normal thought process present Skin: COMMON NORMALS: no rashes or lesions noted and no wounds GENERAL SKIN EXAM: no rashes or lesions noted Course 2 Vital Signs: Vital signs: Vital Signs Temperature 97.6 F 10/23/23 15:20 Pulse Rate 95 10/23/23 16:12 Respiratory Rate 24 H 10/23/23 16:01 Blood Pressure 166/79 10/23/23 15:20 Pulse Oximetry 98 10/23/23 16:01 Oxygen Delivery Me thod Nasal Cannula 10/23/23 16:01 Oxygen Flow Rate 3 10/23/23 16:01 MDM - SOB/Dyspnea Medical Decision Making Patient presents for COPD exacerbation does have some slight hypercapnia she does feel much improved after breathing treatment steroids I spoke to the hospitalist and will admit for observation for her COPD. Medical Records I reviewed the patient's medical records. Lab Data I reviewed the patient's lab results. 10/23/23 15:51 10/23/23 15:51 Labs/Radiology: Laboratory Results WBC 13.29 10^3/uL (3.29-11.43) H 10/23/23 15:51 RBC 4.67 10^6/uL (3.85-5.65) 10/23/23 15:51 Hgb 14.00 g/dL (11.27-16.99) 10/23/23 15:51 Hct 43.8 % (36-47) 10/23/23 15:51 MCV 93.8 fl (85-98) 10/23/23 15:51 MCH 30.0 pg (27-33) 10/23/23 15:51 MCHC 32.0 g/dL (30-55) 10/23/23 15:51 RDW 12.4 % (12.1-15.1) 10/23/23 15:51 Plt Count 291 10^3/cmm (157-399) 10/23/23 15:51 MPV 8.8 fL (7.4-10.4) 10/23/23 15:51 Neut % (Auto) 82.3 % 10/23/23 15:51 Lymph % (Auto) 7.6 % 10/23/23 15:51 [place] % (Auto) 5.1 % 10/23/23 15:51 Eos % (Auto) 3.5 % 10/23/23 15:51 Baso % (Auto) 1.0 % 10/23/23 15:51 Neut # (Auto) 10.94 10^3/uL (1.8-7.7) H 10/23/23 15:51 Lymph # (Auto) 1.0 10^3/uL (0.8-4.8) 10/23/23 15:51 [place] # (Auto) 0.7 10^3/uL (0.2-0.9) 10/23/23 15:51 Eos # (Auto) 0.5 10^3/uL (0.0-0.8) 10/23/23 15:51 Baso # (Auto) 0.1 10^3/uL (0.0-0.1) 10/23/23 15:51 Nucleated RBC % (auto) 0 % 10/23/23 15:51 Nucleated RBCs # 0.0 /100WBC 10/23/23 15:51 Specimen Type Arterial 10/23/23 15:55 Sample Site Radial, right 10/23/23 15:55 ABG pH 7.30 (7.35-7.45) L 10/23/23 15:55 ABG pCO2 60.9 mmHg (35-45) H* 10/23/23 15:55 ABG pO2 107.0 mmHg (80.0-100.0) H 10/23/23 15:55 ABG PO2/FiO2 Ratio 0 10/23/23 15:55 ABG HCO3 29.7 mmol/L (22-26) H 10/23/23 15:55 ABG Base Excess 1.7 mmol/L (-2.0-2.0) 10/23/23 15:55 Jose Test Pos 10/23/23 15:55 Hematocrit 40.9 % (37-47) 10/23/23 15:55 Hgb O2 Saturation 94.5 % (95-100) L 10/23/23 15:55 Carboxyhemoglobin 3.5 %THgb (0.4-20.1) 10/23/23 15:55 Methemoglobin 0.4 % (0.4-1.5) 10/23/23 15:55 Total Hemoglobin 13.3 g/dL (12-16) 10/23/23 15:55 O2 Delivery Device Nc 10/23/23 15:55 FiO2 32.0 % 10/23/23 15:55 Video Games Mechanic ID Monro 10/23/23 15:55 Sodium 134 mmol/L (136-145) L 10/23/23 15:51 Potassium 4.5 mmol/L (3.5-5.1) 10/23/23 15:51 Chloride 94 mmol/L (98-107) L 10/23/23 15:51 Carbon Dioxide 30 mmol/L (22-29) H 10/23/23 15:51 Anion Gap 14.5 (5-19) 10/23/23 15:51 BUN 9 mg/dL (8-23) 10/23/23 15:51 Creatinine 0.4 mg/dL (0.5-0.9) L 10/23/23 15:51 GFR Calculation Not Reportable 10/23/23 15:51 Glucose 121 mg/dL (65-115) H 10/23/23 15:51 Calculated Osmolality 278 mOsm/kg (285-295) L 10/23/23 15:51 Calcium 8.9 mg/dL (8.5-10.5) 10/23/23 15:51 Total Bilirubin 0.4 mg/dL (0.15-1.2) 10/23/23 15:51 AST 16 U/L (0-32) 10/23/23 15:51 ALT 8 U/L (0-33) 10/23/23 15:51 Alkaline Phosphatase 97 U/L (35-105) 10/23/23 15:51 NT-Pro-B Natriuret Pep 119 pg/mL (0-125) 10/23/23 15:51 Total Protein 8.1 g/dL (6.6-8.7) 10/23/23 15:51 Albumin 4.3 g/dL (3.5-5.2) 10/23/23 15:51 Globulin 3.8 g/dL (1.3-4.6) 10/23/23 15:51 All radiology interpretation(s) finalized by discharge EKG Data EKG 1: I personally reviewed and interpreted this EKG as follows: EKG Interpretation Date: 10/23/23 EKG interpretation time: 16:08 Interpretation: nsr hr [address] or t abnormalities qrs 84 qtc 394 Discharge Plan Discharge Patient Disposition: Admitted As Inpatient Clinical Impression: Acute exacerbation of chronic obstructive airways disease Condition: Stable Prescriptions: No Action benzonatate [Tessalon Perles] 100 mg capsule 100 mg PO TID PRN (Reason: cough) Qty: 90 5RF nystatin 100,000 unit/mL suspension 5 ml PO QID 10 Days Qty: 200 0RF Rx Instructions: swish and swallow trazodone 100 mg tablet 50 mg PO DAILY nitroglycerin 0.4 mg tablet, sublingual 0.4 mg sublingual Q5M PRN (Reason: chest pain) Qty: 25 1RF Rx Instructions: do not exceed 3 doses per episode azelastine 137 mcg (0.1 %) aerosol,spray 1 spray intranasal BID Qty: 30 3RF Rx Instructions: administer into each nostril loratadine [Claritin] 10 mg tablet 10 mg PO DAILY Qty: 30 11RF cetirizine [Zyrtec] 10 mg tablet 10 mg PO DAILY PRN albuterol sulfate [Ventolin HFA] 90 mcg/actuation HFA aerosol inhaler 2 puff INHALATION Q6H PRN (Reason: Shortness Of Breath) Qty: 8.5 6RF prednisone 2.5 mg tablet 2.5 mg PO DAILY Qty: 30 3RF ipratropium-albuterol 0.5 mg-3 mg(2.5 mg base)/3 mL solution for nebulization 3 ml INHALATION Q6H PRN (Reason: unknown) Qty: 180 3RF fluticasone propionate [Flonase Allergy Relief] 50 mcg/actuation spray,suspension 1 spray intranasal BID 30 Days Qty: 16 3RF Rx Instructions: administer into each nostril budesonide 0.5 mg/2 mL suspension for nebulization 0.5 mg inhalation Q12H Qty: 120 11RF formoterol fumarate [Perforomist] 20 mcg/2 mL solution for nebulization 2 ml inhalation BID Qty: 120 11RF Yupelri 175 mcg/3 mL solution for nebulization 175 mcg inhalation DAILY Qty: 90 11RF azithromycin 250 mg tablet See Rx Instructions .ROUTE .COMPLEX Qty: 36 11RF Rx Instructions: Take 1 tablet daily on Mondays, Wednesdays and Fridays Tylenol 325 mg Tablet 325 mg PO PRN ibuprofen 200 mg Tablet 600 mg PO PRN Referrals: Lucía Sheppard MD [Primary Care Provider] - Coding Level of Care Code ED Group Controller for Anjelica Lambert
[2023-10-23 16:37] LABS: Alanine Aminotransferase 8 U/L (0-33); Albumin Level 4.3 g/dL (3.5-5.2); Alkaline Phosphatase 97 U/L (35-105); Anion Gap 14.5 (5-19); Aspartate Amino Transferase 16 U/L (0-32); Blood Urea Nitrogen 9 mg/dL (8-23); Calcium 8.9 mg/dL (8.5-10.5); Carbon Dioxide 30 mmol/L (22-29); Chloride 94 mmol/L (98-107); Creatinine Clr Calc Pharmacy 43.8765; Globulin 3.8 g/dL (1.3-4.6); Glucose 121 mg/dL (65-115); NT Pro B Type Natriuretic Pept 119 pg/mL (0-125); Osmolality Calculated 278 mOsm/kg (285-295); Potassium 4.5 mmol/L (3.5-5.1); Sodium 134 mmol/L (136-145); Total Bilirubin 0.4 mg/dL (0.15-1.2); Total Protein 8.1 g/dL (6.6-8.7)
--- NOTE | 2023-10-23 17:49 | P.HP_ITS ---
Providers/Chief Complaint 2 Admitting Physician: Cindy Reed MD Primary Care Provider: Lucía LUNA MD Chief Complaint: sob History of Present Illness Agnieszka Carolina is a 73 year old female With past medical history of gold class D COPD, usually on 2 L of oxygen supplementation most recently on 3 L follows up with pulmonary clinic with pulmonary function test last in April 2021 showed FEV1/FVC ratio 44% with reduced DLCO on chronic azithromycin and oral prednisone 2.5 mg daily. Patient presents to the ER today stating that her breathing has been worse than her usual. Usually she saturates 92% at rest and desaturates down to low 70s on exertion. Her cough and breathing has been little worse than her usual. Complains of nausea for last 24 hours. Denies any fever. Denies any sick contacts. Review of Systems 2 General: Reports: 10 or more systems reviewed and unremarkable except in HPI and below Const: Denies: fever(s), chills, body aches, change in appetite, change in weight, malaise, night sweats, diaphoresis, change in sleep pattern, daytime sleepiness or snoring Eyes: Denies: change in vision, blurry vision, photophobia, eye discomfort or eye discharge ENMT: Denies: throat pain, enlarged tonsils, hoarseness, mouth pain, oral sores, dry mouth, tinnitus, nasal congestion or post nasal drip Card: Denies: chest pain, palpitations, irregular heart rhythm, edema, swelling of feet/ankles, lightheadedness, syncope, pre-syncope, dyspnea on exertion, orthopnea, leg pain with exertion or acrocyanosis Resp: Denies: dyspnea, productive cough, non-productive cough, wheezing, stridor, pain on inspiration, change in phlegm color, hemoptysis or chest congestion GI: Denies: abdominal pain, nausea, vomiting, hematemesis, coffee ground emesis, dysphagia, heartburn, diarrhea, constipation, bloating, GI cramping, change in bowel habits, pain on defecation, hematochezia or melena : Denies: flank pain, dysuria, urinary frequency, urinary urgency, urinary hesitancy, nocturia or hematuria Musc: Denies: neck pain, back pain, extremity pain, joint pain, joint swelling, joint redness, joint stiffness or limited range of motion Neuro: Denies: headache(s), numbness in extremities, weakness in extremities, sensory changes, lack of coordination, difficulty walking, frequent falls, dizziness, vertigo, confusion, Slurred speech present, difficulty communicating thoughts or seizure-like activity Psych: Denies: anxiety, depression, mood swings, panic attacks, hopelessness or irritability Endo: Denies: polyuria, polydipsia, tired all the time, cold intolerance, excessive sweating, flushing or heat intolerance Jose Martin/Lymph: Denies: easy bruising or easy bleeding All/Imm: Denies: tongue swelling, facial swelling or acute wheezing Medications/Allergies Home Medications Medication Instructions Recorded Confirmed Last Taken Type acetaminophen 325 mg tablet 325 mg PO PRN 08/08/19 10/06/23 Unknown History (Tylenol) ibuprofen 200 mg tablet 600 mg PO PRN 08/08/19 10/06/23 08/08/19 History benzonatate 100 mg capsule 100 mg PO TID PRN cough #90 caps 08/01/20 10/06/23 Unknown Rx (Deisi Angel) nystatin 100,000 unit/mL oral 5 ml PO QID 10 days #200 mL 08/10/20 10/06/23 Unknown Rx suspension trazodone 100 mg tablet 50 mg PO DAILY 03/01/21 10/06/23 Unknown History nitroglycerin 0.4 mg sublingual 0.4 mg sublingual Q5M PRN chest 03/15/21 10/06/23 Unknown Rx tablet pain #25 tabs fluticasone propionate 50 1 spray intranasal BID 30 days #16 05/14/21 10/06/23 Unknown Rx mcg/actuation nasal grams spray,suspension (Flonase Allergy Relief) azelastine 137 mcg (0.1 %) nasal 1 spray intranasal BID #30 mL 07/22/22 10/06/23 Unknown Rx spray aerosol loratadine 10 mg tablet (Claritin) 10 mg PO DAILY #30 tabs 07/22/22 10/06/23 Unknown Rx budesonide 0.5 mg/2 mL suspension 0.5 mg (2 mL) inhalation Q12H #120 07/01/23 10/06/23 Unknown Rx for nebulization mL formoterol fumarate 20 mcg/2 mL 2 ml inhalation BID #120 mL 07/01/23 10/06/23 Unknown Rx solution for nebulization (Perforomist) revefenacin 175 mcg/3 mL solution 175 mcg (3 mL) inhalation DAILY 07/01/23 10/06/23 Unknown Rx for nebulization (Viripekellyi) #90 mL azithromycin 250 mg tablet See Rx Instructions .Route 09/17/23 10/06/23 Unknown Rx .COMPLEX #36 tabs albuterol sulfate 90 mcg/actuation 2 puff inhalation Q6H PRN 10/06/23 10/06/23 Unknown Rx aerosol inhaler (Ventolin HFA) Shortness Of Breath #8.5 grams cetirizine 10 mg tablet (Zyrtec) 10 mg PO DAILY PRN 10/06/23 10/06/23 Unknown History ipratropium 0.5 mg-albuterol 3 mg 3 ml inhalation Q6H PRN unknown 10/06/23 10/06/23 Unknown Rx (2.5 mg base)/3 mL nebulization #180 mL soln prednisone 2.5 mg tablet 2.5 mg PO DAILY #30 tabs 10/06/23 10/06/23 Unknown Rx Allergies Allergy/AdvReac Type Severity Reaction Status Date / Time pentazocine [From Talobdulia] Allergy Severe ALGY-Anaphy Verified 10/23/23 15:26 laxis bee venom protein (honey bee) Allergy ALGY-Anaphy Verified 10/23/23 15:26 laxis PFSH Acute 2 PFSH: Medical History TMJ (dislocation of temporomandibular joint) COPD (chronic obstructive pulmonary disease) Rhinitis Joint pain Osteoarthritis Degenerative arthritis of hip Hip pain, bilateral Lumbar spine pain Surgical History History of mandibular surgery History of appendectomy History of hysterectomy History of tonsillectomy and adenoidectomy Family History Mother Myocardial infarction Hypertension Social History Smoking and tobacco/nicotine status: former use of tobacco/nicotine Quit status (tobacco/nicotine): has quit using Year quit tobacco: 2011 - 2PPD x 40 Years Alcohol intake: never Substance/Drug Use: never Lives independently: Yes Household members: none Marital status: Current occupational status: retired Do you think of yourself as: Straight/Heterosexual Current gender identity: Female Vitals/I&O/Wt Last Vital Signs Temp 97.6 F 10/23/23 15:20 Pulse 84 10/23/23 17:33 Resp 22 H 10/23/23 17:33 BP 137/77 10/23/23 17:33 Pulse Ox 98 10/23/23 17:33 O2 Del Method Nasal Cannula 10/23/23 17:33 O2 Flow Rate 3 10/23/23 17:33 Weight last 48 hrs Weight 43.091 kg Physical Exam 2 Narrative: EXAM NARRATIVE: General: No acute distress, AO x3, NC oxygen supplementation HEENT: PERRLA, pupils bilaterally equal and reactive, cachectic Chest:Bronchial breath sounds all over lung galvan with occasional rhonchi and fine crackles, good equal air entry bilaterally CVS: S1-S2 regular, no murmurs, no tachycardia, no gallops, no rubs Abdomen: Soft, nontender, no organomegaly, bowel sounds present, Neuro: No focal deficits, no facial deformity, AO x3, power 5/5 in all limbs Data 10/23/23 15:51 10/23/23 15:51 A&P Assessment and plan (1) Hypercapnic respiratory failure: In setting of chronic COPD. Respiratory acidosis seen on ABG on presentation. Oxygen supplementation keeping saturation over 88%. DuoNebs every 4 hour, Pulmicort twice daily. Solu-Medrol 30 mg IV every 6 hourly. Check respiratory viral panel, urine Legionella, bacterial antigen, procalcitonin. Continue home dose of azithromycin. (2) Respiratory acidosis: (3) Acute exacerbation of chronic obstructive airways disease: Plan Leukocytosis: White count of found to be 13,000. Patient takes chronic steroids at 2.5 mg. Blood culture, urine Legionella, bacterial antigen, sputum culture. Empirically will start on oral Levaquin. Check A1c, lipid panel, TIBC, vitamin B12, folate level. Regular diet Heparin 5000 every 12 hours for DVT prophylaxis Protonix for PUD prophylaxis CODE STATUS: Discussed in detail with the patient. DNR/DNI. Discharge plan: Patient states she has been thinking of going on hospice at home. She would like to go home with hospice when possible. Case management alerted. Attestations 2 Medical Necessity Statement*: Admission under observation for less than 2 midnights for management of COPD exacerbation leading to hypercapnia respiratory failure and respiratory acidosis Diagnoses Hypercapnic respiratory failure J96.92 Respiratory acidosis E87.29 Acute exacerbation of chronic obstructive airways disease J44.1
[2023-10-23] MEDS: heparin 5,000 unit/mL INJ 1 mL 5000 UNIT SUBCUT (18:20)
[2023-10-23] MEDS: morphine 4 mg/mL SDV 1 mL 2 MG IVP ×2 (18:21→22:43)
[2023-10-23] MEDS: levoFLOXacin 750 mg Tablet PO (18:21)
[2023-10-23 19:18] LABS: Procalcitonin 0.04 ng/mL (0-0.5); Thyroid Stimulating Hormone 3.15 uIU/mL (0.27-4.20); Vitamin B12 1016 pg/mL (232-1245)
[2023-10-23 19:29] LABS: Iron 41 ug/dL (37-145); Percent Saturation 14.2 % (20-50); Total Iron Binding Capacity 287 mcg/dl; Unsaturated Iron Binding 246 ug/dL (112-347)
[2023-10-23 19:35] LABS: Add Urine Microscopic? NO; Charge for UA Resulting for Rev
[2023-10-23 19:55] LABS: Bilirubin Urine Neg (Negative); Blood Urine Neg (Negative); Glucose Urine UA Norm (Normal); Ketones Urine 2+ (Negative); Leukocyte Esterase Urine Negative (Negative); Nitrate Urine Negative (Negative); Protein Urine Neg (Negative); Specific Gravity, Urine 1.015 (1.005-1.030); Urine Appearance Clear (CLEAR); Urine Color Yellow (Yellow); Urobilinogen Urine Norm (Negative); pH Urine 5 (5-7)
[2023-10-23 22:00] LABS: Adenovirus Not Detected (NOT DETECT); Chlamydia Pneumoniae Not Detected (NOT DETECT); Coronavirus 229E,HKU1,NL63,OC4 Not Detected (NOT DETECT); Human Metapneumovirus Not Detected (NOT DETECT); Human Rhinovirus/Enterovirus Not Detected (NOT DETECT); Influenza A Not Detected (NOT DETECT); Influenza A H1 Not Detected (NOT DETECT); Influenza A H1-2009 Not Detected (NOT DETECT); Influenza A H3 Not Detected (NOT DETECT); Influenza B Not Detected (NOT DETECT); Mycoplasma Pneumoniae Not Detected (NOT DETECT); Parainfluenza Virus Type 1 Not Detected (NOT DETECT); Parainfluenza Virus Type 2 Not Detected (NOT DETECT); Parainfluenza Virus Type 3 Not Detected (NOT DETECT); Parainfluenza Virus Type 4 Not Detected (NOT DETECT); Respiratory Syncytial Virus A Not Detected (NOT DETECT); Respiratory Syncytial Virus B Not Detected (NOT DETECT); SARS-COV-2 Not Detected (NOT DETECT)
[2023-10-23] MEDS: acetaminophen 325 mg Tablet 650 MG PO (22:07)
[2023-10-23] MEDS: methylPREDNISolone sod succ 40 mg/mL INJ 30 MG IVP (22:07)
[2023-10-24] VITALS (19 sets, daily range): BP systolic 102–144; BP diastolic 61–88; PULSE 73–106; RESP 15–20; TEMP 36.6–36.9; O2SAT 95–99
[2023-10-24] MEDS: ipratropium-albuterol 3 mL Neb INHALATION ×6 (00:10→23:15)
[2023-10-24] MEDS: methylPREDNISolone sod succ 40 mg/mL INJ 30 MG IVP ×4 (04:11→22:50)
[2023-10-24] MEDS: acetaminophen 325 mg Tablet 650 MG PO ×2 (04:40→11:22)
[2023-10-24 05:22] LABS: Basophils % 0.3 %; Hematocrit 40.3 % (36-47); Lymphocytes # 0.3 10^3/uL (0.8-4.8); Lymphocytes % 5.2 %; Mean Corpuscular HGB Conc 31.5 g/dL (30-55); Mean Corpuscular Hemoglobin 29.1 pg (27-33); Mean Corpuscular Volume 92.2 fl (85-98); Mean Platelet Volume 9.3 fL (7.4-10.4); Monocytes # 0.2 10^3/uL (0.2-0.9); Monocytes % 2.8 %; Neutrophils # 5.58 10^3/uL (1.8-7.7); Nucleated Red Blood Cells % 0 %; Platelet Count 272 10^3/cmm (157-399); Red Blood Count 4.37 10^6/uL (3.85-5.65); Red Cell Distribution Width 12.3 % (12.1-15.1); White Blood Count 6.13 10^3/uL (3.29-11.43)
[2023-10-24] MEDS: heparin 5,000 unit/mL INJ 1 mL 5000 UNIT SUBCUT ×2 (05:36→17:34)
[2023-10-24 05:46] LABS: Alanine Aminotransferase 6 U/L (0-33); Albumin Level 3.8 g/dL (3.5-5.2); Alkaline Phosphatase 85 U/L (35-105); Anion Gap 13.3 (5-19); Aspartate Amino Transferase 14 U/L (0-32); Blood Urea Nitrogen 15 mg/dL (8-23); Calcium 8.9 mg/dL (8.5-10.5); Carbon Dioxide 31 mmol/L (22-29); Chloride 95 mmol/L (98-107); Globulin 3.3 g/dL (1.3-4.6); Glucose 175 mg/dL (65-115); Osmolality Calculated 285 mOsm/kg (285-295); Phosphorus 2.8 mg/dL (2.5-4.5); Potassium 4.3 mmol/L (3.5-5.1); Sodium 135 mmol/L (136-145); Total Bilirubin 0.2 mg/dL (0.15-1.2); Total Protein 7.1 g/dL (6.6-8.7)
[2023-10-24 05:53] LABS: Chol HDL Ratio 3.03 mg/dL (0.0-4.40); Cholesterol 206 mg/dL (0-200); HDL Cholesterol 68 mg/dL (60-100); LDL Cholesterol Calculated 126 mg/dL (50-129); LDL HDL Ratio 1.85 RATIO (0.00-3.22); Triglycerides 58 mg/dL (0-150)
[2023-10-24 05:54] LABS: Estmated Average Glucose 111; Hemoglobin A1C 5.5 % (4.0-6.0)
[2023-10-24 06:03] LABS: Folate Level 7.6 ng/mL (4.8-37.3)
[2023-10-24] MEDS: morphine 4 mg/mL SDV 1 mL 2 MG IVP (06:08)
[2023-10-24] MEDS: pantoprazole DR 40 mg Tablet PO (08:31)
[2023-10-24] MEDS: trazodone 50 mg Tablet PO (08:31)
[2023-10-24] MEDS: benzonatate 100 mg Capsule PO (08:31)
[2023-10-24] MEDS: azithromycin 250 mg Tablet PO (08:31)
--- NOTE | 2023-10-24 09:11 | PC.CHAP ---
Pastoral Care Encounter/Spiritual Assessment Type of Contact [] Declined organic gardening teacher visit [] Patient/Family/Request visit [] Outpatient visit [] Follow-up visit [] Physician referral [] Code/Alert [] Routine visit [] Staff referral [] Actively dying [] Patient sleeping [] Family support [] [] Out of room [] Palliative care [] [x] Receiving care in room [] Pre-surgical visit [] Trauma [] Long length of stay [] ICU visit [] Other: Relational/Emotional Strength [] Patient feels connected with others/family/visitors/staff [] Distress [] Loneliness/isolation [] Abandonment Spirituality of Patient [] Person of Marley [] Attends Bahai of their Marley [] Believes in Prayer [] Reads Bible or Yarsanism materials [] There are Spiritual issues to be addressed Avionics Manager Interventions [] Prayer [] Active listening [] Non-anxious presence [] Spiritual/emotional support [] Crisis/trauma care [] Spiritual counseling [] Bereavement support [] Provided bereavement packet [] Provided Bible/devotional materials [] Provided toy/stuffed animal, coloring book to patient or family member [] Provided Communion [] Anointing/[place] [] Salvation [] Completed spiritual assessment [] Other: Impact on Illness or Injury [] Angry [] Fearful [] Anxious [] Often cries [] Exhaustion [] Unable to work [] Unable to attend jain [] Unable to walk/stand [] Unable to read [] Unable to drive [] Unable to eat/drink [] Unable to sleep [] Unable to be with family [] Patient intubated [] Other: Summary Time spent with patient
[2023-10-24] MEDS: budesonide 0.5 mg/2 mL Neb INHALATION ×2 (09:14→19:36)
[2023-10-24] MEDS: LORazepam 0.5 mg Tablet 0.25 MG PO ×2 (11:22→22:57)
--- NOTE | 2023-10-24 15:06 | P.PN_ITS ---
Subjective 2 Subjective: No acute events overnight. Patient states he is feeling better but still getting out of breath with mild headache and dizziness on ambulation. Though she states this is her baseline with slight worsening over last few days. Saturations have been stable. Denies any chest pain. Complaining of cough. Complaining of headache Vitals/I&O/Wt Last Vital Signs Temp 97.8 F 10/24/23 12:00 Pulse 103 H 10/24/23 12:00 Resp 17 10/24/23 12:00 BP 118/78 10/24/23 12:00 Pulse Ox 95 10/24/23 12:00 O2 Del Method Nasal Cannula 10/24/23 12:00 O2 Flow Rate 2 10/24/23 08:00 10/24/23 10/24/23 10/24/23 06:59 14:59 22:59 Intake Total 240 / 600 240 / 240 Balance 240 / 600 240 / 240 Weight last 48 hrs Weight 42.093 kg Weight 41.912 kg Weight 43.091 kg Weight 43.091 kg Physical Exam 2 Narrative: EXAM NARRATIVE: General: No acute distress, AO x3, NC oxygen supplementation HEENT: PERRLA, pupils bilaterally equal and reactive, cachectic Chest: Bronchial breath sounds all over lung galvan, expiratory and expiratory wheeze all over lung galvan with left more than right, bilateral upper zones more than lower zones CVS: S1-S2 regular, no murmurs, no tachycardia, no gallops, no rubs Abdomen: Soft, nontender, no organomegaly, bowel sounds present, Neuro: No focal deficits, no facial deformity, AO x3, power 5/5 in all limbs Data 10/24/23 04:35 10/24/23 04:35 Micro: Microbiology 10/23/23 22:18 Gram Stain - Final Sputum - Expectorated Sputum 10/23/23 19:30 Bacterial Antigens - Final Urine Kidney 10/23/23 19:30 Legionella Urinary Antigen - Final Unknown Source A&P Assessment and plan (1) Hypercapnic respiratory failure: In setting of chronic COPD. Respiratory acidosis seen on ABG on presentation. Oxygen supplementation keeping saturation over 88%. DuoNebs every 4 hour, Pulmicort twice daily. Solu-Medrol 30 mg IV every 6 hourly. Check respiratory viral panel, urine Legionella, bacterial antigen, procalcitonin. Continue home dose of azithromycin. (2) Respiratory acidosis: (3) Acute exacerbation of chronic obstructive airways disease: Plan Leukocytosis: White count of found to be 13,000. Patient takes chronic steroids at 2.5 mg. Blood culture, urine Legionella, bacterial antigen, sputum culture. Empirically will start on oral Levaquin. Check A1c, lipid panel, TIBC, vitamin B12, folate level. Regular diet Heparin 5000 every 12 hours for DVT prophylaxis Protonix for PUD prophylaxis CODE STATUS: Discussed in detail with the patient. DNR/DNI. Plan for the day: Continue with current nebulization treatment. Do not wean steroids for now. Add oxycodone 5 mg every 8 hours as needed. Also add Ativan 0.25 mg 3 times a day as needed for air hunger. Continue with current oral Levaquin and home dose of azithromycin. Follow-up sputum culture and MRSA swab. Home hospice has been set up. Discharge plan: Plan to discharge to home with hospice in the next 24 hours once set up. Attestations 2 Medical Necessity Statement*: Requires further hospitalization for management of COPD exacerbation in a patient with severe Gold class D COPD while home hospice is being set up Diagnoses Hypercapnic respiratory failure J96.92 Respiratory acidosis E87.29 Acute exacerbation of chronic obstructive airways disease J44.1
[2023-10-24] MEDS: oxyCODONE-APAP 5-325 mg Tablet 1 TAB PO ×2 (15:08→22:58)
[2023-10-25] VITALS (12 sets, daily range): BP systolic 107–131; BP diastolic 61–72; PULSE 76–115; RESP 18–20; TEMP 36.6–36.9; O2SAT 93–97
[2023-10-25] MEDS: heparin 5,000 unit/mL INJ 1 mL 5000 UNIT SUBCUT (04:31)
[2023-10-25] MEDS: methylPREDNISolone sod succ 40 mg/mL INJ 30 MG IVP ×2 (04:31→09:44)
[2023-10-25] MEDS: ipratropium-albuterol 3 mL Neb INHALATION ×3 (04:31→11:10)
[2023-10-25 06:39] LABS: Basophils % 0.1 %; Hematocrit 37.8 % (36-47); Lymphocytes # 0.4 10^3/uL (0.8-4.8); Lymphocytes % 2.5 %; Mean Corpuscular HGB Conc 31.7 g/dL (30-55); Mean Corpuscular Hemoglobin 29.7 pg (27-33); Mean Corpuscular Volume 93.6 fl (85-98); Mean Platelet Volume 9.3 fL (7.4-10.4); Monocytes # 0.3 10^3/uL (0.2-0.9); Neutrophils # 13.39 10^3/uL (1.8-7.7); Neutrophils % 94.6 %; Nucleated Red Blood Cells % 0 %; Platelet Count 263 10^3/cmm (157-399); Red Blood Count 4.04 10^6/uL (3.85-5.65); Red Cell Distribution Width 12.3 % (12.1-15.1); White Blood Count 14.18 10^3/uL (3.29-11.43)
[2023-10-25 07:03] LABS: Alanine Aminotransferase 6 U/L (0-33); Albumin Level 3.7 g/dL (3.5-5.2); Alkaline Phosphatase 84 U/L (35-105); Anion Gap 11.7 (5-19); Aspartate Amino Transferase 16 U/L (0-32); Blood Urea Nitrogen 14 mg/dL (8-23); Carbon Dioxide 33 mmol/L (22-29); Chloride 95 mmol/L (98-107); Globulin 2.9 g/dL (1.3-4.6); Glucose 143 mg/dL (65-115); Osmolality Calculated 283 mOsm/kg (285-295); Potassium 4.7 mmol/L (3.5-5.1); Sodium 135 mmol/L (136-145); Total Bilirubin 0.2 mg/dL (0.15-1.2); Total Protein 6.6 g/dL (6.6-8.7)
[2023-10-25 07:10] LABS: Creatinine Clr Calc Pharmacy 45.4466
[2023-10-25] MEDS: budesonide 0.5 mg/2 mL Neb INHALATION (08:04)
[2023-10-25] MEDS: oxyCODONE-APAP 5-325 mg Tablet 1 TAB PO (09:43)
[2023-10-25] MEDS: trazodone 50 mg Tablet PO (09:43)
[2023-10-25] MEDS: pantoprazole DR 40 mg Tablet PO (09:43)
[2023-10-25] MEDS: LORazepam 0.5 mg Tablet 0.25 MG PO (09:44)
--- NOTE | 2023-10-25 11:59 | P.DS_ITS ---
Discharge Providers Date of Admission: 10/23/23 17:23 Date of Discharge: October 25, 2023 Attending Provider at Admission: Cindy Reed MD Attending Provider at Discharge: Emerson Woodruff MD Primary Care Provider: Lucía LUNA MD Diagnoses at Discharge Discharge Diagnosis (1) Hypercapnic respiratory failure: Status: Acute (2) Respiratory acidosis: Status: Acute (3) Acute exacerbation of chronic obstructive airways disease: Status: Acute Reason for Visit Reason for Visit: sob Hospital Course Hospital Course Agnieszka Carolina is a 73 year old female With past medical history of gold class D COPD, usually on 2 L of oxygen supplementation most recently on 3 L follows up with pulmonary clinic with pulmonary function test last in April 2021 showed FEV1/FVC ratio 44% with reduced DLCO on chronic azithromycin and oral prednisone 2.5 mg daily. Patient presents to the ER today stating that her breathing has been worse than her usual. Usually she saturates 92% at rest and desaturates down to low 70s on exertion. Her cough and breathing has been little worse than her usual. Complains of nausea for last 24 hours. Denies any fever. Denies any sick contacts. Patient was started on treatment for COPD exacerbation. Started on IV steroids along with nebulization treatment. During hospitalization patient stated she wanted to transition over to home hospice for palliative care which is being arranged. She is been discharged home with hospice on oral steroid taper, nebulization treatment. Her hospitalization was otherwise unremarkable. Physical Exam Narrative: EXAM NARRATIVE: General: No acute distress, AO x3, NC oxygen supplementation HEENT: PERRLA, pupils bilaterally equal and reactive, cachectic Chest: Bronchial breath sounds all over lung galvan, expiratory and expiratory wheeze all over lung galvan with left more than right, bilateral upper zones more than lower zones CVS: S1-S2 regular, no murmurs, no tachycardia, no gallops, no rubs Abdomen: Soft, nontender, no organomegaly, bowel sounds present, Neuro: No focal deficits, no facial deformity, AO x3, power 5/5 in all limbs Discharge Data Studies Completed and Pending Completed Studies During Hospitalization Category Date Time Status XR chest 1V portable [id number] Stat Exams 10/23/23 15:45 Completed Pending at discharge Category Date Time Status MRSA [Methicillin Resistant S.aureu] Routine Lab 10/23/23 18:38 Received Sputum Culture and Gram Stain Stat Lab 10/23/23 22:18 Results Radiology Impressions Chest X-Ray 10/23/23 15:45 IMPRESSION: Hyperinflated lungs. Underlying emphysema. No acute findings. Laboratory Results WBC 14.18 10^3/uL (3.29-11.43) H 10/25/23 06:01 RBC 4.04 10^6/uL (3.85-5.65) 10/25/23 06:01 Hgb 12.00 g/dL (11.27-16.99) 10/25/23 06:01 Hct 37.8 % (36-47) 10/25/23 06:01 MCV 93.6 fl (85-98) 10/25/23 06:01 MCH 29.7 pg (27-33) 10/25/23 06:01 MCHC 31.7 g/dL (30-55) 10/25/23 06:01 RDW 12.3 % (12.1-15.1) 10/25/23 06:01 Plt Count 263 10^3/cmm (157-399) 10/25/23 06:01 MPV 9.3 fL (7.4-10.4) 10/25/23 06:01 Neut % (Auto) 94.6 % 10/25/23 06:01 Lymph % (Auto) 2.5 % 10/25/23 06:01 [place] % (Auto) 2.0 % 10/25/23 06:01 Eos % (Auto) 0.0 % 10/25/23 06:01 Baso % (Auto) 0.1 % 10/25/23 06:01 Neut # (Auto) 13.39 10^3/uL (1.8-7.7) H 10/25/23 06:01 Lymph # (Auto) 0.4 10^3/uL (0.8-4.8) L 10/25/23 06:01 [place] # (Auto) 0.3 10^3/uL (0.2-0.9) 10/25/23 06:01 Eos # (Auto) 0.0 10^3/uL (0.0-0.8) 10/25/23 06:01 Baso # (Auto) 0.0 10^3/uL (0.0-0.1) 10/25/23 06:01 Nucleated RBC % (auto) 0 % 10/25/23 06:01 Nucleated RBCs # 0.0 /100WBC 10/25/23 06:01 Specimen Type Arterial 10/23/23 15:55 Sample Site Radial, right 10/23/23 15:55 ABG pH 7.30 (7.35-7.45) L 10/23/23 15:55 ABG pCO2 60.9 mmHg (35-45) H* 10/23/23 15:55 ABG pO2 107.0 mmHg (80.0-100.0) H 10/23/23 15:55 ABG PO2/FiO2 Ratio 0 10/23/23 15:55 ABG HCO3 29.7 mmol/L (22-26) H 10/23/23 15:55 ABG Base Excess 1.7 mmol/L (-2.0-2.0) 10/23/23 15:55 Jose Test Pos 10/23/23 15:55 Hematocrit 40.9 % (37-47) 10/23/23 15:55 Hgb O2 Saturation 94.5 % (95-100) L 10/23/23 15:55 Carboxyhemoglobin 3.5 %THgb (0.4-20.1) 10/23/23 15:55 Methemoglobin 0.4 % (0.4-1.5) 10/23/23 15:55 Total Hemoglobin 13.3 g/dL (12-16) 10/23/23 15:55 O2 Delivery Device Nc 10/23/23 15:55 FiO2 32.0 % 10/23/23 15:55 Virtual Assistant For Advertisers ID [place] 10/23/23 15:55 Sodium 135 mmol/L (136-145) L 10/25/23 06:01 Potassium 4.7 mmol/L (3.5-5.1) 10/25/23 06:01 Chloride 95 mmol/L (98-107) L 10/25/23 06:01 Carbon Dioxide 33 mmol/L (22-29) H 10/25/23 06:01 Anion Gap 11.7 (5-19) 10/25/23 06:01 BUN 14 mg/dL (8-23) 10/25/23 06:01 Creatinine 0.4 mg/dL (0.5-0.9) L 10/25/23 06:01 GFR Calculation Not Reportable 10/25/23 06:01 Glucose 143 mg/dL (65-115) H 10/25/23 06:01 Estimat Average Glucose 111 10/24/23 04:35 Hemoglobin A1c 5.5 % (4.0-6.0) 10/24/23 04:35 Calculated Osmolality 283 mOsm/kg (285-295) L 10/25/23 06:01 Calcium 9.0 mg/dL (8.5-10.5) 10/25/23 06:01 Phosphorus 2.8 mg/dL (2.5-4.5) 10/24/23 04:35 Magnesium 2.0 mg/dL (1.7-2.3) 10/24/23 04:35 Iron 41 ug/dL (37-145) 10/23/23 15:51 TIBC 287 mcg/dl 10/23/23 15:51 % Saturation 14.2 % (20-50) L 10/23/23 15:51 Unsat Iron Binding 246 ug/dL (112-347) 10/23/23 15:51 Total Bilirubin 0.2 mg/dL (0.15-1.2) 10/25/23 06:01 AST 16 U/L (0-32) 10/25/23 06:01 ALT 6 U/L (0-33) 10/25/23 06:01 Alkaline Phosphatase 84 U/L (35-105) 10/25/23 06:01 NT-Pro-B Natriuret Pep 119 pg/mL (0-125) 10/23/23 15:51 Total Protein 6.6 g/dL (6.6-8.7) 10/25/23 06:01 Albumin 3.7 g/dL (3.5-5.2) 10/25/23 06:01 Globulin 2.9 g/dL (1.3-4.6) 10/25/23 06:01 Triglycerides 58 mg/dL (0-150) 10/24/23 04:35 Cholesterol 206 mg/dL (0-200) H 10/24/23 04:35 LDL Cholesterol, Calc 126 mg/dL (50-129) 10/24/23 04:35 HDL Cholesterol 68 mg/dL (60-100) 10/24/23 04:35 LDL/HDL Ratio 1.85 RATIO (0.00-3.22) 10/24/23 04:35 Cholesterol/HDL Ratio 3.03 mg/dL (0.0-4.40) 10/24/23 04:35 Vitamin B12 1016 pg/mL (232-1245) 10/23/23 15:51 Folate 7.6 ng/mL (4.8-37.3) 10/24/23 04:35 Procalcitonin 0.04 ng/mL (0-0.5) 10/23/23 15:51 TSH 3.15 uIU/mL (0.27-4.20) 10/23/23 15:51 Urine Color Yellow (Yellow) 10/23/23 19:30 Urine Appearance Clear (CLEAR) 10/23/23 19:30 Urine pH 5 (5-7) 10/23/23 19:30 Ur Specific [place] 1.015 (1.005-1.030) 10/23/23 19:30 Urine Protein Neg (Negative) 10/23/23 19:30 Urine Glucose (UA) Norm (Normal) 10/23/23 19:30 Urine Ketones 2+ (Negative) H 10/23/23 19:30 Urine Blood Neg (Negative) 10/23/23 19:30 Urine Nitrate Negative (Negative) 10/23/23 19:30 Urine Bilirubin Neg (Negative) 10/23/23 19:30 Urine Urobilinogen Norm mg/dL (Negative) 10/23/23 19:30 Ur Leukocyte Esterase Negative (Negative) 10/23/23 19:30 Adenovirus (PCR) Not detected (NOT DETECT) 10/23/23 18:38 C. pneumoniae DNA (PCR) Not detected (NOT DETECT) 10/23/23 18:38 Coronavirus 229E (PCR) Not detected (NOT DETECT) 10/23/23 18:38 Human Metapneumovir PCR Not detected (NOT DETECT) 10/23/23 18:38 Influenza A (H1) PCR Not detected (NOT DETECT) 10/23/23 18:38 Influ A (H1/09) PCR Not detected (NOT DETECT) 10/23/23 18:38 Influenza A (H3) PCR Not detected (NOT DETECT) 10/23/23 18:38 Influenza Type A (PCR) Not detected (NOT DETECT) 10/23/23 18:38 Influenza Type B (PCR) Not detected (NOT DETECT) 10/23/23 18:38 M. pneumoniae (PCR) Not detected (NOT DETECT) 10/23/23 18:38 Parainfluenza 1 (PCR) Not detected (NOT DETECT) 10/23/23 18:38 Parainfluenza 2 (PCR) Not detected (NOT DETECT) 10/23/23 18:38 Parainfluenza 3 (PCR) Not detected (NOT DETECT) 10/23/23 18:38 Parainfluenza 4 (PCR) Not detected (NOT DETECT) 10/23/23 18:38 RSV Type A (PCR) Not detected (NOT DETECT) 10/23/23 18:38 RSV Type B (PCR) Not detected (NOT DETECT) 10/23/23 18:38 Entero/Rhino (PCR) Not detected (NOT DETECT) 10/23/23 18:38 SARS-CoV-2 (PCR) Not detected (NOT DETECT) 10/23/23 18:38 Vitals Last Vital Signs Temp 98 F 10/25/23 07:59 Pulse 94 10/25/23 11:17 Resp 18 10/25/23 11:11 BP 125/72 10/25/23 07:59 Pulse Ox 97 10/25/23 11:11 O2 Del Method Nasal Cannula 10/25/23 11:11 O2 Flow Rate 2 10/25/23 11:11 FiO2 1 10/24/23 19:34 Discharge Plan Discharge Patient Disposition: Home Condition: Stable Prescriptions: New prednisone 10 mg tablet See Taper PO DIRECTED Qty: 42 0RF Taper: predniSONE 60-10 60 mg Daily for 2 Days and 0 Hour 50 mg Daily for 2 Days and 0 Hour 40 mg Daily for 2 Days and 0 Hour 30 mg Daily for 2 Days and 0 Hour 20 mg Daily for 2 Days and 0 Hour 10 mg Daily for 2 Days and 0 Hour Rx Instructions: see taper instructions Continued albuterol sulfate [Ventolin HFA] 90 mcg/actuation HFA aerosol inhaler 2 puff INHALATION Q6H PRN (Reason: Shortness Of Breath) Qty: 8.5 6RF prednisone 2.5 mg tablet 2.5 mg PO DAILY Qty: 30 3RF ipratropium-albuterol 0.5 mg-3 mg(2.5 mg base)/3 mL solution for nebulization 3 ml INHALATION Q6H PRN (Reason: unknown) Qty: 180 3RF budesonide 0.5 mg/2 mL suspension for nebulization 0.5 mg inhalation Q12H Qty: 120 11RF formoterol fumarate [Perforomist] 20 mcg/2 mL solution for nebulization 2 ml inhalation BID Qty: 120 11RF Yupelri 175 mcg/3 mL solution for nebulization 175 mcg inhalation DAILY Qty: 90 11RF azithromycin 250 mg tablet See Rx Instructions .ROUTE .COMPLEX Qty: 36 11RF Rx Instructions: Take 1 tablet daily on Mondays, Wednesdays and Fridays acetaminophen [Tylenol] 325 mg Tablet 325 mg PO PRN PRN (Reason: Pain) ibuprofen 200 mg Tablet 600 mg PO PRN trazodone 50 mg tablet 50 mg PO BEDTIME PRN (Reason: Sleep) Discharge Orders: Discharge Order (Routine); Ordered 10/25/23 Ordered By: Emerson Woodruff Referrals: [facility] [Other] - 1-3 days Discharge Diet: Cardiac Discharge Activity: Resume usual activity and Increase activity as tolerated Patient Instructions: COPD, Hospice Care, Opioid Safety Discharge Attestations Time Spent in Discharge Care*: greater than 30 min Specific Discharge Activities: educating patient, discussing with pcp/other providers, discussing with telehealth case manager/social workers/dc planners, documenting/other paperwork and evaluating patient/reviewing data Status at Discharge: Cognitive status at discharge: cognitively intact , Behavioral status at discharge: cooperative , Functional status at discharge: independent ambulation , Overall status at discharge: patient is back to baseline Quality Metrics Clinical Quality Measures [ No reported AMI, CVA or VTE this stay] Coding Level of Care Code 46254 Total time (in minutes) for Discharge: 50 Diagnoses Hypercapnic respiratory failure J96.92 Respiratory acidosis E87.29 Acute exacerbation of chronic obstructive airways disease J44.1
[2023-10-25 12:00] LABS: Methicillin-Resist S.aureu PCR NOT DETECTED (NOT DETECTED)
--- NOTE | 2023-10-25 12:31 | PC.NURSE ---
Notified [facility] that patient is being discharged.
== END 2023-10-25 13:15 | disposition home or self-care (01) ==
LOC: ER 17:19 → MEDSURG 17:57
PROVIDERS: Admitting Provider Student in an Organized Health Care Education/Training Program; Emergency Provider Emergency Medicine; PCP Pediatrics; Visit Provider Student in an Organized Health Care Education/Training Program
DX: J44.1 Chronic obstructive pulmonary disease with (acute) exacerbation (principal); J96.92 Respiratory failure, unspecified with hypercapnia; E87.29 Other acidosis; Z99.81 Dependence on supplemental oxygen; Z79.52 Long term (current) use of systemic steroids; Z79.2 Long term (current) use of antibiotics; M19.90 Unspecified osteoarthritis, unspecified site; Z87.891 Personal history of nicotine dependence
CPT/HCPCS: 36415; 36600; 71045; 80053; 80061; 81003; 82607; 82746; 82805; 83036; 83540; 83550; 83735; 83880; 84100; 84145; 84443; 85025; 86403; 87070; 87205; 87449; 87486; 87581; 87633; 87641; 93005; 94640; 94664; 96372; 96374; 96375; 99285; G0378; J1644; J2270; J2919; J7613; J7626; Q0144